=== PATIENT | male | born 1985 | race Caucasian/White ===

== ENCOUNTER 2016-10-24 14:35 | Emergency (ER) | payer OTHER ==
[2016-10-24 15:40] VITALS: BP 148/103
--- NOTE | 2016-10-24 16:18 | UC ---
Upper Extremity HPI - HPI Summary HPI Summary: patient was sledding fell and landed on right arm it was pulled backward, hit back of head on arm. pain along the right side of neck. states he felt his arm was numb this morning but not anymore. took ibuprofen around 11. states that NSAIDS hurt his stomach. - History of Current Complaint Chief Complaint: UCTrauma Stated Complaint: HEADACHE Time Seen by Provider: 10/24/16 15:45 Hx Obtained From: Patient ?: No Onset/Duration: Sudden Onset, Lasting Days Severity Initially: Moderate Severity Currently: Moderate Pain Intensity: 7 Pain Scale Used: 0-10 Numeric Location Of Pain: Is Discrete @ - right side of occiput and trapezius Character: Dull, Aching Aggravating Factor(s): Flexion Alleviating Factor(s): Nothing Associated Signs And Symptoms: Positive: Negative - Risk Factors Non-Orthopedic Risk Factor: Negative DVT Risk Factors: Negative Septic Arthritis Risk Factor: Negative - Allergies/Home Medications Allergies/Adverse Reactions: Allergies Allergy/AdvReac Type Severity Reaction Status Date / Time NSAIDs AdvReac Severe GI Upset Verified 10/24/16 15:41 Home Medications: Home Medications Ibuprofen TAB* [Advil TAB*] 600 mg PO PRN 10/24/16 [History] PMH/Surg Hx/FS Hx/Imm Hx Previously Healthy: Yes - Surgical History Surgical History: None Surgery Procedure, Year, and Place: no SX to rt upper extremity - Family History Known Family History: Positive: Hypertension Negative: Cardiac Disease, Diabetes, Renal Disease - Social History Alcohol Use: None Substance Use Type: None Smoking Status (MU): Never Smoked Tobacco Type: Smokeless Tobacco Amount Used/How Often: 1/2 can daily Length of Time of Smoking/Using Tobacco: trying to quit - Immunization History Most Recent Influenza Vaccination: none Review of Systems Constitutional: Negative Skin: Negative Eyes: Negative ENT: Negative Respiratory: Negative Cardiovascular: Negative Gastrointestinal: Negative Genitourinary: Negative Motor: Negative Neurovascular: Negative Musculoskeletal: Myalgia Neurological: Headache Psychological: Negative All Other Systems Reviewed And Are Negative: Yes Physical Exam Triage Information Reviewed: Yes Appearance: Well-Appearing, Well-Nourished, Pain Distress Vital Signs: Initial Vital Signs Temp 98.1 F 10/24/16 15:35 Pulse 108 10/24/16 15:35 Resp 16 10/24/16 15:35 BP 148/103 10/24/16 15:35 Pulse Ox 100 10/24/16 15:35 Vital Signs Reviewed: Yes Eye Exam: Normal Eyes: Positive: Conjunctiva Clear ENT Exam: Normal ENT: Positive: Normal ENT inspection, Pharynx normal, TMs normal Dental Exam: Normal Neck exam: Normal Neck: Positive: Supple, Nontender, No Lymphadenopathy, Tenderness @ - over right side upper trapezius Respiratory Exam: Normal Respiratory: Positive: Chest non-tender, Lungs clear, Normal breath sounds Cardiovascular Exam: Normal Cardiovascular: Positive: RRR, No Murmur, Pulses Normal Abdominal Exam: Normal Abdomen Description: Positive: Nontender, No Organomegaly, Soft Bowel Sounds: Positive: Present Musculoskeletal: Positive: Strength Intact, ROM Intact - painful in extension but able to move through full ROM, no probelms with ext and lateral flexion and rotation Neurological Exam: Normal - NEG rhomberg, cranial nerves intact, PERRLA Neurological: Positive: Alert, Muscle Tone Normal Psychological Exam: Normal Psychological: Positive: Normal Response To Family Skin Exam: Normal Upper Extremity Course/Dx - Course Course Of Treatment: hx obtained, exam performed, Neuro exam negative. cannot reproduce the numbness and tingling in arm, shoulder ext rot and abd do not illicit any nerve pain or numbenss. patient refusing toradol and muscle relaxors as they have not helped him in the past. state the only thing that works for him is hydrocodone. 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 advised patiant to use ibuprofen and heat for muscle pain and gave 3 tabs of NORCO for bedtime x 3 days. - Differential Dx/Diagnosis Differential Diagnosis/HQI/PQRI: Bursitis, Contusion, Laceration, Strain, Sprain Provider Diagnoses: muscle strain of right upper trap. headache Discharge - Discharge Plan Condition: Stable Disposition: HOME Prescriptions: HYDROcodone/ACETAMIN 5-325 MG* [[place] 5-325 TAB*] 1 tab PO BEDTIME PRN #3 tab MDD 5 mg PRN Reason: Pain
== END 2016-10-24 16:56 | disposition home or self-care (01) ==
LOC: UCEAST 14:35
DX: S46.811A Strain of other muscles, fascia and tendons at shoulder and upper arm level, right arm, initial encounter (principal); W19.XXXA Unspecified fall, initial encounter; Y93.23 Activity, snow (alpine) (downhill) skiing, snowboarding, sledding, tobogganing and snow tubing; Y92.9 Unspecified place or not applicable; R51 Headache; Z88.6 Allergy status to analgesic agent; F17.220 Nicotine dependence, chewing tobacco, uncomplicated
CPT/HCPCS: 99212; G0463

== ENCOUNTER 2016-11-09 09:13 | Emergency (ER) | payer OTHER ==
[2016-11-09 09:24] VITALS: BP 155/94
--- NOTE | 2016-11-09 09:31 | UC ---
Neck Pain HPI - HPI Summary HPI Summary: complaint of neck pain and left shoulder that started 11/03/16 went to PCP-Esdras MATSON and was given flexeril and ibuprofen but it isn't helping the pain pain starts in his neck and radiates into the back of his arm and into his hand pain is constant increases with movement up and down and turning to the left increase the pain nothing lessens the pain denies trauma but has a physical job with lifting involved had massage therapy without much relief flexeril helps him sleep but doesn't help with pain ibuprofen 3-4x day without relief - History of Current Complaint Stated Complaint: LT SHOULDER/NECK COMPLAINT Hx Obtained From: Patient - Allergies/Home Medications Allergies/Adverse Reactions: Allergies Allergy/AdvReac Type Severity Reaction Status Date / Time NSAIDs AdvReac Severe GI Upset Verified 11/09/16 09:24 Home Medications: Home Medications Cyclobenzaprine TAB* [Flexeril TAB*] 10 mg PO BID PRN 11/09/16 [History Confirmed 11/09/16] PMH/Surg Hx/FS Hx/Imm Hx Previously Healthy: Yes - Surgical History Surgical History: None Surgery Procedure, Year, and Place: no SX to rt upper extremity - Family History Known Family History: Positive: Hypertension Negative: Cardiac Disease, Diabetes, Renal Disease - Social History Occupation: Employed Full-time Lives: With Family Alcohol Use: None Substance Use Type: None Smoking Status (MU): Never Smoked Tobacco Type: Smokeless Tobacco Amount Used/How Often: 1/2 can daily Length of Time of Smoking/Using Tobacco: trying to quit - Immunization History Most Recent Influenza Vaccination: none Review Of Systems Constitutional: Positive: Negative Skin: Positive: Negative Eyes: Positive: Negative ENT: Positive: Negative Respiratory: Positive: Negative Cardiovascular: Positive: Negative Gastrointestinal: Positive: Negative Genitourinary: Positive: Negative Musculoskeletal: Positive: Other: - neck pain Neurological: Positive: Negative Psychological: Positive: Negative All Other Systems Reviewed And Are Negative: Yes Physical Exam Triage Information Reviewed: Yes Appearance: No Pain Distress, Well-Nourished Vital Signs: Initial Vital Signs Temp 97.8 F 11/09/16 09:19 Pulse 88 11/09/16 09:19 Resp 16 11/09/16 09:19 BP 155/94 11/09/16 09:19 Pulse Ox 98 11/09/16 09:19 Vital Signs Reviewed: Yes Eyes: Positive: Conjunctiva Clear ENT: Positive: Normal ENT inspection Neck: Positive: Supple, No Lymphadenopathy, Other: - no cspine tenderness point tenderness throughout left side of trapezius full ROM Respiratory: Positive: Lungs clear, Normal breath sounds, No respiratory distress Abdomen Description: Positive: Nontender, Soft Bowel Sounds: Positive: Present Musculoskeletal: Positive: Other: - tenderness in musculature between left scapula and spine equal strength in both arms Neurological: Positive: Alert Skin Exam: Normal Neck Pain Course/Dx - Course Course Of Treatment: exam competed. musculoskelatal pain d/t strain. will change muscle relaxer and NSAIDS- pt already taking NSADIS not a true allergy. will refer to PT for further evaluation and treatment. - Differential Dx/Diagnosis Differential Dx/HQI/PQRI: Sprain, Strain, Torticollis Provider Diagnoses: neck pain with radiculopathy, elevated blood pressure Discharge - Discharge Plan Condition: Stable Disposition: HOME Prescriptions: Metaxalone TAB* [Skelaxin TAB*] 800 mg PO TID #30 tab Naproxen TAB* [Naprosyn TAB*] 500 mg PO Q12H PRN #20 tab PRN Reason: Pain - Mild Patient Education Materials: Acute Neck Pain (ED), Hypertension (ED) Referrals: Umair Arriaga [Primary Care Provider] - Additional Instructions: . Stop flexeril as directed.Start skelaxin as directed Do not drink, drive or operate heavy machinery while on skelaxin. Take naproxen for pain. Please call physical therapist for further evaluation and treatment of your lower back pain. Increase fluids and rest. Please review your discharge instructions. Your blood pressure is elevated please followup with primary care provider for evaluation of your blood pressure. If your symptoms do not improve please call your primary care provider or return to urgent care.
== END 2016-11-09 09:59 | disposition home or self-care (01) ==
LOC: UCEAST 09:13
DX: M54.12 Radiculopathy, cervical region (principal); I10 Essential (primary) hypertension; F17.220 Nicotine dependence, chewing tobacco, uncomplicated; Z88.6 Allergy status to analgesic agent
CPT/HCPCS: 99212; G0463

== ENCOUNTER 2016-11-12 11:52 | Emergency (ER) | payer OTHER ==
[2016-11-12 12:20] VITALS: BP 146/103
--- NOTE | 2016-11-12 13:16 | UC ---
Shoulder Pain HPI - HPI Summary HPI Summary: LEFT SCAPULAR PAIN SINCE 11/03/15. SEEN BY PRIMARY CARE BLAYNE, GIVEN BACLOFEN, PREDNISONE, PHYSICAL THERAPY REFERRAL. PATIENT DEMANDED SCHEDULED MEDICATION. ( 5 DIFFERENT PROVIDERS ON [facility] WITHIN LAST 90 DAYS). I DISCUSSED THAT I WAS WILLING TO GET XRAYS AND ATTEMPT ALTERNATIVE PAIN MANGEMENT AND ALTERNATIVE NONSCHEDULED MUSCLE RELAXERS THERAPY, PATIENT REFUSED XRAYS AND LIDO PATCHES OTHER REFERRALS OR ALTERNATIVE NONSCHEDULED THERAPY AND LEFT ROOM AMA. STATING THAT HE WOULD CALL PRIMARY CARE AND PHYSICAL THERAPIST NEXT WEEK. - History of Current Complaint Chief Complaint: UCUpperExtremity Stated Complaint: NECK AND SHOULDER PAIN Time Seen by Provider: 11/12/16 12:51 Hx Obtained From: Patient Onset/Duration: Gradual Onset, Lasting Weeks, Still Present Severity Initially: Moderate Severity Currently: Moderate Location Of Pain: Is Discrete @ - LEFT SHOULDER AND SCAPULA Character: Spasmodic Aggravating Factor(s): Lifting Alleviating Factor(s): Rest Associated Signs And Symptoms: Positive: Numbness/Tingling - LEFT ARM Related History: Dominant Hand Right - Risk Factors Non-Orthopedic Risk Factor: Negative DVT Risk Factors: Negative Septic Arthritis Risk Factor: Negative - Allergies/Home Medications Allergies/Adverse Reactions: Allergies Allergy/AdvReac Type Severity Reaction Status Date / Time NSAIDs AdvReac Severe GI Upset Verified 11/09/16 09:24 Home Medications: Home Medications Baclofen TAB* [Lioresal TAB*] 10 mg PO TID PRN 11/12/16 [History Confirmed 11/12] Prednisone 11/12/16 [History] PMH/Surg Hx/FS Hx/Imm Hx Previously Healthy: Yes - Surgical History Surgical History: None Surgery Procedure, Year, and Place: no SX to rt upper extremity - Family History Known Family History: Positive: Hypertension Negative: Cardiac Disease, Diabetes, Renal Disease - Social History Lives: With Family Alcohol Use: None Substance Use Type: None Smoking Status (MU): Never Smoked Tobacco Type: Smokeless Tobacco Amount Used/How Often: 1 can daily Length of Time of Smoking/Using Tobacco: 3-4 years Have You Smoked in the Last Year: No Cessation Counseling: Patient Advised to Stop - Immunization History Most Recent Influenza Vaccination: none Review of Systems Constitutional: Negative Skin: Negative Eyes: Negative ENT: Negative Respiratory: Negative Cardiovascular: Negative Gastrointestinal: Negative Genitourinary: Negative Motor: Negative Neurovascular: Negative Musculoskeletal: Arthralgia, Myalgia Neurological: Paresthesia Psychological: Negative All Other Systems Reviewed And Are Negative: Yes Physical Exam Triage Information Reviewed: Yes Appearance: Well-Appearing, Well-Nourished, Pain Distress - MILD Vital Signs: Initial Vital Signs Temp 99.2 F 11/12/16 12:13 Pulse 86 11/12/16 12:13 Resp 16 11/12/16 12:13 BP 146/103 11/12/16 12:13 Pulse Ox 98 11/12/16 12:13 Vital Signs Reviewed: Yes Eye Exam: Normal ENT Exam: Normal ENT: Positive: Normal ENT inspection, Hearing grossly normal, Pharynx normal, TMs normal Dental Exam: Normal Neck: Positive: Supple, Nontender, Tenderness @ - LEFT SCAPULAR MARGIN AND LEFT SUPERIOR PARSPINAL MUSCLES Respiratory Exam: Normal Respiratory: Positive: Chest non-tender, Lungs clear, Normal breath sounds, No respiratory distress, No accessory muscle use Cardiovascular Exam: Normal Cardiovascular: Positive: RRR, No Murmur Abdominal Exam: Normal Musculoskeletal Exam: Normal Musculoskeletal: Positive: Strength Intact, ROM Intact, No Edema Neurological Exam: Normal Psychological Exam: Normal Skin Exam: Normal Shoulder Course/Dx - Differential Dx/Diagnosis Differential Diagnosis/HQI/PQRI: AC Separation, Sprain, Strain Provider Diagnoses: SHOULDER PAIN Discharge - Discharge Plan Condition: Stable Disposition: AGAINST MEDICAL ADVICE Referrals: Umair Arriaga [Primary Care Provider] -
== END 2016-11-12 13:28 | disposition left against medical advice (07) ==
LOC: UCEAST 11:52
DX: M25.512 Pain in left shoulder (principal); R20.0 Anesthesia of skin; Z88.6 Allergy status to analgesic agent; F17.220 Nicotine dependence, chewing tobacco, uncomplicated
CPT/HCPCS: 99212; G0463

== ENCOUNTER 2017-01-30 12:39 | Emergency (ER) | payer SELFPAY ==
[2017-01-30 13:15] VITALS: BP 144/71
--- NOTE | 2017-01-30 13:42 | UC ---
Back Pain HPI - HPI Summary HPI Summary: 2 evenings ago developed pain between his shoulder blades after a day of heavy yardwork. No hx of trauma or sx. Had similar pain from muscular strain 10 years ago that resolved on its own. Had to call into work today due to pain. - History of Current Complaint Chief Complaint: UCBackPain Stated Complaint: BACK PAIN-TWEEKED Time Seen by Provider: 01/30/17 13:16 Hx Obtained From: Patient Onset/Duration: Gradual Onset, Lasting Days Timing: Constant Severity Initially: Moderate Severity Currently: Moderate Back Pain: Is Discrete @ Character: Sharp, Spasmodic, Stiffness Aggravating: Movement, Bending Alleviating: Rest Associated Signs And Symptoms: Negative: Swelling, Fever, Weakness, Numbness, Tingling, Bladder Incontinence, Bowel Incontinence, Weight Loss - Allergies/Home Medications Allergies/Adverse Reactions: Allergies Allergy/AdvReac Type Severity Reaction Status Date / Time NSAIDs AdvReac Severe GI Upset Verified 11/09/16 09:24 Home Medications: Home Medications Gemfibrozil TAB* [Lopid TAB*] 600 mg PO BID 01/30/17 [History Confirmed ] Lisinopril [Prinivil TAB 20 mg] 20 mg PO DAILY 01/30/17 [History Confirmed 01/30] PMH/Surg Hx/FS Hx/Imm Hx Cardiovascular History Of: Reports: Hypertension - Surgical History Surgical History: None Surgery Procedure, Year, and Place: no SX to rt upper extremity - Family History Known Family History: Positive: Hypertension Negative: Cardiac Disease, Diabetes, Renal Disease - Social History Occupation: Employed Full-time Alcohol Use: None Substance Use Type: None Smoking Status (MU): Never Smoked Tobacco Type: Smokeless Tobacco Amount Used/How Often: 1 can daily Length of Time of Smoking/Using Tobacco: 3-4 years Have You Smoked in the Last Year: No Cessation Counseling: Patient Advised to Stop - Immunization History Most Recent Influenza Vaccination: none Review of Systems Constitutional: Negative Skin: Negative Eyes: Negative ENT: Negative Respiratory: Negative Cardiovascular: Negative Gastrointestinal: Negative Genitourinary: Negative Motor: Negative Neurovascular: Negative Musculoskeletal: Myalgia - upper back Neurological: Negative Psychological: Negative All Other Systems Reviewed And Are Negative: Yes Physical Exam Triage Information Reviewed: Yes Appearance: Well-Appearing, No Pain Distress, Well-Nourished Vital Signs: Initial Vital Signs Temp 97.7 F 01/30/17 13:10 Pulse 81 01/30/17 13:10 Resp 18 01/30/17 13:10 BP 144/71 01/30/17 13:10 Pulse Ox 100 01/30/17 13:10 Vital Signs Reviewed: Yes Eye Exam: Normal Eyes: Positive: Conjunctiva Clear ENT Exam: Normal ENT: Positive: Normal ENT inspection, Hearing grossly normal, Pharynx normal, TMs normal Dental Exam: Normal Neck exam: Normal Neck: Positive: Supple, Nontender, No Lymphadenopathy Respiratory Exam: Normal Respiratory: Positive: Chest non-tender, Lungs clear, Normal breath sounds, No respiratory distress, No accessory muscle use Cardiovascular Exam: Normal Cardiovascular: Positive: RRR, No Murmur Musculoskeletal Exam: Other - no bony tenderness, sore over upper back muscles Musculoskeletal: Positive: Strength Intact, ROM Intact Neurological Exam: Normal Neurological: Positive: Alert Psychological Exam: Normal Skin Exam: Normal Back Pain Course/Dx - Differential Dx/Diagnosis Provider Diagnoses: Upper back strain Discharge - Discharge Plan Condition: Stable Disposition: HOME Prescriptions: Cyclobenzaprine TAB* [Flexeril 10 MG TAB*] 10 mg PO BID PRN #14 tab PRN Reason: Pain Meloxicam 7.5 mg PO DAILY #10 tab Patient Education Materials: Thoracic Back Strain (ED) Forms: *Work Release Referrals: Beverley DUFFY,Umair Cooper [Primary Care Provider] - Additional Instructions: Apply warm moist heat and do gentle passive stretches like I showed you. I expect you to see clear improvement within 2-3 days. If not, please see your primary care provider.
== END 2017-01-30 13:44 | disposition home or self-care (01) ==
LOC: UCEAST 12:39
DX: S29.012A Strain of muscle and tendon of back wall of thorax, initial encounter (principal); X58.XXXA Exposure to other specified factors, initial encounter; Y93.9 Activity, unspecified; Y99.9 Unspecified external cause status; I10 Essential (primary) hypertension; F17.290 Nicotine dependence, other tobacco product, uncomplicated; Z88.6 Allergy status to analgesic agent
CPT/HCPCS: 99212; G0463

== ENCOUNTER 2017-02-05 18:41 | Emergency (ER) | payer SELFPAY ==
[2017-02-05 19:32] VITALS: BP 131/84
--- NOTE | 2017-02-05 19:58 | UC ---
Knee Pain HPI - HPI Summary HPI Summary: The patient comes in today for: 1. Knee pain re-assessment: Onset: 8-9 days ago. Palliative/provocative: Walking and bending his back does makes his conditions worse, but he thinks that these are manageable. Quality: Ache, and sharp Region: Upper to mid back and right knee. Severity: 2/10 Time: Constant. Associated symptoms: Event: He twisted it playing softball about 9 days ago. He also had a low back pain from about 8 days ago. He got meloxicam and Flexeril which he did not use except for Flexeril at night. HE states that he is ready to go back to work. Numbness/weakness: None. No problems with bowel and bladder control. * - History of Current Complaint Chief Complaint: UCGeneralIllness Stated Complaint: WORK NOTE Time Seen by Provider: 02/05/17 19:47 Hx Obtained From: Patient - Allergies/Home Medications Allergies/Adverse Reactions: Allergies Allergy/AdvReac Type Severity Reaction Status Date / Time NSAIDs AdvReac Severe GI Upset Verified 11/09/16 09:24 PMH/Surg Hx/FS Hx/Imm Hx Previously Healthy: No Endocrine History Of: Reports: Dyslipidemia Denies: Diabetes, Thyroid Disease, Hyperthyroidism, Hypothyroidism Cardiovascular History Of: Reports: Hypertension Denies: Cardiac Disorders, Pacemaker/ICD, Myocardial Infarction, Congestive Heart Failure, Atrial Fibrillation, Deep Vein Thrombosis, Bleeding Disorders Respiratory History Of: Denies: COPD, Asthma, Bronchitis, Pneumonia, Pulmonary Embolism GI/ History Of: Denies: Gastroesophageal Reflux, Ulcer, Gastrointestinal Bleed, Gall Bladder Disease, Kidney Stones, Diverticulitis, Renal Disease, Urosepsis Neurological History Of: Denies: TIA, CVA, Dementia, Seizures, Migraine Psychological History Of: Denies: Anxiety, Depression, Bipolar Disorder, Schizophrenia, Post Traumatic Stress Disorder Cancer History Of: Denies: Lung Cancer, Colorectal Cancer, Breast Cancer, Prostate Cancer, Cervical Cancer Other History Of: Negative For: HIV, Hepatitis B, Hepatitis C, Anticoagulant Therapy - Surgical History Surgical History: None Surgery Procedure, Year, and Place: no SX to rt upper extremity - Family History Known Family History: Positive: Hypertension Negative: Cardiac Disease, Diabetes, Renal Disease - Social History Alcohol Use: None Substance Use Type: None Smoking Status (MU): Never Smoked Tobacco Type: Smokeless Tobacco Amount Used/How Often: 1 can daily Length of Time of Smoking/Using Tobacco: 3-4 years Have You Smoked in the Last Year: No - Immunization History Most Recent Influenza Vaccination: none Review of Systems Constitutional: Negative Skin: Negative Eyes: Negative ENT: Negative Respiratory: Negative Cardiovascular: Negative Gastrointestinal: Negative Genitourinary: Negative Musculoskeletal: Arthralgia All Other Systems Reviewed And Are Negative: Yes Physical Exam Triage Information Reviewed: Yes Appearance: Well-Appearing, No Pain Distress - He has no psychomotor slowing or guarding. He moves on and off the exam table with no problems., Well-Nourished Vital Signs: Initial Vital Signs Temp 98.6 F 02/05/17 19:27 Pulse 100 02/05/17 19:27 Resp 18 02/05/17 19:27 BP 131/84 02/05/17 19:27 Pulse Ox 100 02/05/17 19:27 Vital Signs Reviewed: Yes Eyes: Positive: Conjunctiva Clear. Negative: Discharge ENT: Positive: Hearing grossly normal. Negative: Pharyngeal erythema, Nasal congestion, Nasal drainage, TM bulging, TM dull, TM red, Tonsillar swelling, Tonsillar exudate Dental: Negative: Gross Decay/Caries @, Dental Fracture @ Neck: Positive: Supple, Nontender, No Lymphadenopathy. Negative: Nuchal Rigidity Respiratory: Positive: Lungs clear, No respiratory distress, No accessory muscle use. Negative: Crackles, Wheezing Cardiovascular: Positive: RRR, No Murmur Abdomen Description: Positive: Nontender, No Organomegaly. Negative: Distended , Guarding Musculoskeletal: Positive: Strength Intact, ROM Intact, No Edema, Other: - Back : He has good range of motion, no SLR and no minimal tenderness to palpatino of the rhomboids or the thoracic paraspinous musculature. Knee: NO effusion, or tenderness to palpation anywhere around the knee. He has full range of motion and there is no laxity of the cruciate or collateral ligaments. Neurological: Positive: Alert, Muscle Tone Normal Psychological: Positive: Age Appropriate Behavior, Consolable Skin: Negative: rashes, breakdown Knee Pain Course/Dx - Differential Dx/Diagnosis Provider Diagnoses: Upper back strain. Right knee pain. Discharge - Discharge Plan Condition: Stable Disposition: HOME Patient Education Materials: Thoracic Back Strain (ED), Knee Pain (ED) Forms: *Work Release Referrals: Umair Arriaga [Primary Care Provider] - 1 Week (Please see your primary care provider in a week to see how well you are doing. If you get worse, please be seen sooner in the ER or through us.)
== END 2017-02-05 20:19 | disposition home or self-care (01) ==
LOC: UCEAST 18:41
DX: S29.012A Strain of muscle and tendon of back wall of thorax, initial encounter (principal); M25.561 Pain in right knee; Y93.64 Activity, baseball; E78.5 Hyperlipidemia, unspecified; I10 Essential (primary) hypertension; Z88.6 Allergy status to analgesic agent
CPT/HCPCS: 99212; G0463

== ENCOUNTER 2017-02-13 17:23 | Emergency (ER) | payer SELFPAY ==
[2017-02-13 18:40] VITALS: BP 118/67
--- NOTE | 2017-02-13 19:08 | UC ---
Knee Pain HPI - HPI Summary HPI Summary: The patient comes in today for: 1. Right knee pain and back pain: Onset: Knee pain 2 weeks, back pain, 1-2 weeks. Palliative/provocative: Laying still helps. Quality: Back: Ache. Knee: sharp when walking--stiff when sitting. Region: Lower back and knee. Severity: 1/10 for the back. Knee 5/10 Time: Constant. Associated symptoms: Event: He was playing softball and ended up suffering right knee pain and back pain. From the worse, the back pain is 80% improved. The knee pain is about the same as before. Still stiff and still has sharp pain from time to time. Previous treatment: Ultram gave him "acid reflux" and "headaches." He states that he needs to go back to work. Previous treatment: NSAIDS upsets his stomach and Ultram/tramadol causes acid reflux. He denies any giving away or catching of his right knee movement. * - History of Current Complaint Chief Complaint: UCLowerExtremity Stated Complaint: RIGHT KNEE PAIN Time Seen by Provider: 02/13/17 18:54 Hx Obtained From: Patient - Allergies/Home Medications Allergies/Adverse Reactions: Allergies Allergy/AdvReac Type Severity Reaction Status Date / Time Acetaminophen [From Ultracet] Allergy GI Upset Verified 02/13/17 18:44 Tramadol [From Ultracet] Allergy GI Upset Verified 02/13/17 18:44 NSAIDs AdvReac Severe GI Upset Verified 02/13/17 18:40 Home Medications: Home Medications Ibuprofen TAB* [Advil TAB*] 600 mg PO Q6H PRN 02/13/17 [History Confirmed ] PMH/Surg Hx/FS Hx/Imm Hx Previously Healthy: No Endocrine History Of: Reports: Dyslipidemia Denies: Diabetes, Thyroid Disease, Hyperthyroidism, Hypothyroidism Cardiovascular History Of: Reports: Hypertension Denies: Cardiac Disorders, Pacemaker/ICD, Myocardial Infarction, Congestive Heart Failure, Atrial Fibrillation, Deep Vein Thrombosis, Bleeding Disorders Respiratory History Of: Denies: COPD, Asthma, Bronchitis, Pneumonia, Pulmonary Embolism GI/ History Of: Denies: Gastroesophageal Reflux, Ulcer, Gastrointestinal Bleed, Gall Bladder Disease, Kidney Stones, Diverticulitis, Renal Disease, Urosepsis Neurological History Of: Denies: TIA, CVA, Dementia, Seizures, Migraine Psychological History Of: Denies: Anxiety, Depression, Bipolar Disorder, Schizophrenia, Post Traumatic Stress Disorder Cancer History Of: Denies: Lung Cancer, Colorectal Cancer, Breast Cancer, Prostate Cancer, Cervical Cancer Other History Of: Negative For: HIV, Hepatitis B, Hepatitis C, Anticoagulant Therapy - Surgical History Surgical History: None Surgery Procedure, Year, and Place: no SX to rt upper extremity - Family History Known Family History: Positive: Hypertension Negative: Cardiac Disease, Diabetes, Renal Disease - Social History Occupation: Employed Full-time Alcohol Use: None Substance Use Type: None Smoking Status (MU): Never Smoked Tobacco Type: Smokeless Tobacco Amount Used/How Often: 1 can daily Length of Time of Smoking/Using Tobacco: 3-4 years Have You Smoked in the Last Year: No - Immunization History Most Recent Influenza Vaccination: none Review of Systems Constitutional: Negative Skin: Negative Eyes: Negative ENT: Negative Respiratory: Negative Cardiovascular: Negative Gastrointestinal: Negative Genitourinary: Negative Musculoskeletal: Arthralgia All Other Systems Reviewed And Are Negative: Yes Physical Exam Triage Information Reviewed: Yes Appearance: Well-Appearing, No Pain Distress, Well-Nourished Vital Signs: Initial Vital Signs Temp 98.8 F 02/13/17 18:35 Pulse 99 02/13/17 18:35 Resp 20 02/13/17 18:35 BP 118/67 02/13/17 18:35 Pulse Ox 100 02/13/17 18:35 Vital Signs Reviewed: Yes Eyes: Positive: Conjunctiva Clear. Negative: Discharge ENT: Positive: Hearing grossly normal. Negative: Pharyngeal erythema, Nasal congestion, Nasal drainage, TM bulging, TM dull, TM red, Tonsillar swelling, Tonsillar exudate Dental: Negative: Gross Decay/Caries @, Dental Fracture @ Neck: Positive: Supple, Nontender, No Lymphadenopathy. Negative: Nuchal Rigidity Respiratory: Positive: Lungs clear, No respiratory distress, No accessory muscle use. Negative: Crackles, Wheezing Cardiovascular: Positive: RRR, No Murmur Abdomen Description: Positive: Nontender, No Organomegaly, Soft. Negative: Distended, Guarding Musculoskeletal: Positive: Strength Intact, ROM Intact, No Edema, Other: - Back : He has no psychomotor slowing or guarding. He has no tenderness to palpation of the paraspinous musculture of the lower thoracic area where he states that the pain is present. He has no SLR. Right knee: no swelling, effusion, or tenderness to palpation of the posterior knee, or the hamstring tendons or laxity of the collateral ligaments or the cruciate ligaments. There is no tenderness to palpation of the anterior meniscii. Neurological: Positive: Alert, Muscle Tone Normal Psychological: Positive: Age Appropriate Behavior, Consolable Skin: Negative: rashes, breakdown Knee Pain Course/Dx - Differential Dx/Diagnosis Provider Diagnoses: chronic back pain. Right knee pain. Discharge - Discharge Plan Condition: Stable Disposition: HOME Patient Education Materials: Chronic Back Pain (ED), Knee Pain (ED) Forms: *Work Release Referrals: MIRANDA Bull [Primary Care Provider] - 1 Week (Please see your primary care provider for narcotic pain control)
== END 2017-02-13 19:33 | disposition home or self-care (01) ==
LOC: UCCORT 17:23
DX: M25.561 Pain in right knee (principal); M54.9 Dorsalgia, unspecified; G89.29 Other chronic pain; Z88.6 Allergy status to analgesic agent; Z88.5 Allergy status to narcotic agent; E78.5 Hyperlipidemia, unspecified; I10 Essential (primary) hypertension; F17.220 Nicotine dependence, chewing tobacco, uncomplicated
CPT/HCPCS: 99212; G0463

== ENCOUNTER 2017-02-13 17:48 | Emergency (ER) | payer SELFPAY | END 2017-02-13 23:10 | disposition left against medical advice (07) | LOC: UCEAST 17:48 | DX: M25.569 Pain in unspecified knee (principal); Z53.21 Procedure and treatment not carried out due to patient leaving prior to being seen by health care provider ==

== ENCOUNTER 2017-02-26 15:15 | Emergency (ER) | payer SELFPAY ==
[2017-02-26 15:40] VITALS: BP 119/64
--- NOTE | 2017-02-26 16:21 | UC ---
Dental HPI - HPI Summary HPI Summary: Patient arrives to with CC of pain over left upper tooth radiating to the jaw and ear which began this morning. Denies trismus, drooling or dysphagia. Pain is 3/10, sharp and throbbing. Denies airway compromise or SOB. Denies ear pain, eye pain, blurry vision or double vision. Otherwise healthy. Pain is worse with chewing and cold drinks, better with ibuprofen, but only improves slightly. Patient denies dental care for several years. Denies smoking history , but endorses chewing tobacco. Patient has been seen her twice recently for knee pain and has been prescribed norco. He has tried ibuprofen this morning with little relief. - History of Current Complaint Chief Complaint: UCDentalProblem Stated Complaint: TOOTH ACHE Time Seen by Provider: 02/26/17 15:49 Hx Obtained From: Patient Onset/Duration: Sudden Onset Severity: Moderate Pain Intensity: 2 Pain Scale Used: 0-10 Numeric Aggravating: Cold, Chewing - Allergies/Home Medications Allergies/Adverse Reactions: Allergies Allergy/AdvReac Type Severity Reaction Status Date / Time Tramadol [From Ultracet] Allergy GI Upset Verified 02/26/17 15:41 NSAIDs AdvReac Severe GI Upset Verified 02/26/17 15:41 PMH/Surg Hx/FS Hx/Imm Hx Previously Healthy: Yes - takes medications for HTN and high cholesterol Endocrine History Of: Reports: Dyslipidemia Denies: Diabetes, Thyroid Disease, Hyperthyroidism, Hypothyroidism Cardiovascular History Of: Reports: Hypertension Denies: Cardiac Disorders, Pacemaker/ICD, Myocardial Infarction, Congestive Heart Failure, Atrial Fibrillation, Deep Vein Thrombosis, Bleeding Disorders Respiratory History Of: Denies: COPD, Asthma, Bronchitis, Pneumonia, Pulmonary Embolism GI/ History Of: Denies: Gastroesophageal Reflux, Ulcer, Gastrointestinal Bleed, Gall Bladder Disease, Kidney Stones, Diverticulitis, Renal Disease, Urosepsis Neurological History Of: Denies: TIA, CVA, Dementia, Seizures, Migraine Psychological History Of: Denies: Anxiety, Depression, Bipolar Disorder, Schizophrenia, Post Traumatic Stress Disorder Cancer History Of: Denies: Lung Cancer, Colorectal Cancer, Breast Cancer, Prostate Cancer, Cervical Cancer Other History Of: Negative For: HIV, Hepatitis B, Hepatitis C, Anticoagulant Therapy - Surgical History Surgical History: None Surgery Procedure, Year, and Place: no SX to rt upper extremity - Family History Known Family History: Positive: Hypertension Negative: Cardiac Disease, Diabetes, Renal Disease - Social History Occupation: Employed Full-time Lives: With Family Alcohol Use: None Substance Use Type: None Smoking Status (MU): Never Smoked Tobacco Type: Smokeless Tobacco Amount Used/How Often: 1 can daily Length of Time of Smoking/Using Tobacco: 3-4 years Have You Smoked in the Last Year: No - Immunization History Most Recent Influenza Vaccination: none Review of Systems Constitutional: Negative Skin: Negative Eyes: Negative ENT: Dental Pain Respiratory: Negative Cardiovascular: Negative Gastrointestinal: Negative Neurovascular: Negative Neurological: Negative All Other Systems Reviewed And Are Negative: Yes Physical Exam Triage Information Reviewed: Yes Appearance: Well-Appearing, No Pain Distress, Well-Nourished Vital Signs: Initial Vital Signs Temp 97.7 F 02/26/17 15:34 Pulse 92 02/26/17 15:34 Resp 18 02/26/17 15:34 BP 119/64 02/26/17 15:34 Pulse Ox 100 02/26/17 15:34 Vital Signs Reviewed: Yes Eye Exam: Normal Eyes: Positive: Conjunctiva Clear ENT Exam: Normal ENT: Positive: Pharynx normal Dental: Positive: Percussion Tenderness @, Gross Decay/Caries @, Dental Fracture @, Other: - Several dental caries, cavities, crowding and broken teeth throughout. Pain on palpation over mandible. No TMJ tenderness. No pain with opening and closing mouth. Poor dental hygiene and outpatient dental care. No erythema at site of pain. Neck: Positive: Supple, No Lymphadenopathy Respiratory Exam: Normal Respiratory: Positive: Chest non-tender, Lungs clear Cardiovascular Exam: Normal Cardiovascular: Positive: RRR Neurological Exam: Normal Neurological: Positive: Alert Psychological Exam: Normal Psychological: Positive: Normal Response To Family, Age Appropriate Behavior Skin Exam: Normal Dental Complaint Course/Dx - Course Course Of Treatment: Posterior upper #13 tooth with pain. No dental abscess or lesions seen over area of concern. No erythema at site of pain. No drainage from area. Several dental caries, cavities, crowding and broken teeth throughout. No pain on palpation over mandible, but endorses pain over maxilla. No TMJ tenderness. No pain with opening and closing mouth. Poor dental hygiene and outpatient dental care. No trismus or difficulty swallowing. Will treat for possible dental infection/abscess based on symptoms of pain and radiation to jaw and ear. No allergies. Will treat with Pencillin. Patient has no allergies to abx. Patient to follow up immediately with dentist. He states he will call [facility]. He has recently received 2 - 7 days worth prescriptions of [place]. I advised I will give him 1 day worth of pain medication for breakthrough pain, but he will need to follow up with dentist for further evaluation. [place] 3 tablets given. Istop reveals multiple pain medication dispensed recently. - Differential Dx/Diagnosis Differential Diagnosis/Dx: Dental Abscess, Dental Caries, Odontogenic Pain, Other - pupitis Provider Diagnoses: dental pain Discharge - Discharge Plan Condition: Stable Disposition: HOME Prescriptions: HYDROcodone/ACETAMIN 5-325 MG* [[place] 5-325 TAB*] 1 tab PO Q8H PRN #3 tab MDD 3 PRN Reason: Pain Penicillin VK TAB 500 MG(NF) [Penicillin VK 500 mg Tab(NF)] 500 mg PO QID #28 tab Patient Education Materials: Toothache (ED) Referrals: Umair Arriaga [Primary Care Provider] - Additional Instructions: DO NOT SMOKE OR CHEW TOBACCO. You have been diagnosed with dental pain with possible infection: Antibiotics as prescribed to you. Penicillin four times daily for 7 days To minimize the potential for gastrointestinal intolerance, Penicillin should be taken at the start of a meal. If you have any questions about your medication, please contact us or ask your pharmacist. Salt water rinses several times per day will improve healing time. Ibuprofen 600mg three times daily with meals for discomfort. Follow up with a dentist for routine care to prevent recurrence of infections. If fever, worsening pain or swelling develops, see your PCP, dentist or come back to the Emergency Department. Images Dental: 1 - dental pain
== END 2017-02-26 16:08 | disposition home or self-care (01) ==
LOC: UCEAST 15:15
DX: K08.89 Other specified disorders of teeth and supporting structures (principal); I10 Essential (primary) hypertension; E78.5 Hyperlipidemia, unspecified; F17.220 Nicotine dependence, chewing tobacco, uncomplicated; Z88.6 Allergy status to analgesic agent; Z88.5 Allergy status to narcotic agent
CPT/HCPCS: 99212; G0463

== ENCOUNTER 2017-03-13 16:08 | Emergency (ER) | payer SELFPAY | END 2017-03-13 17:25 | disposition left against medical advice (07) | LOC: UCCORT 16:08 | DX: K08.89 Other specified disorders of teeth and supporting structures (principal); Z53.21 Procedure and treatment not carried out due to patient leaving prior to being seen by health care provider ==

== ENCOUNTER 2017-03-13 16:45 | Emergency (ER) | payer SELFPAY | END 2017-03-13 17:05 | disposition left against medical advice (07) | LOC: UCEAST 16:45 | DX: Z53.21 Procedure and treatment not carried out due to patient leaving prior to being seen by health care provider (principal) ==

== ENCOUNTER 2017-03-13 21:46 | Emergency (ER) | payer SELFPAY ==
[2017-03-13 22:59] VITALS: BP 111/67
--- NOTE | 2017-03-13 23:38 | UC ---
Dental HPI - HPI Summary HPI Summary: Pt here w/ Lt upper jaw dental pain. Started a couple of weeks ago and was seen 02/26 here - given norco + PCN. States that helped but pain returned today - pain radiates into ear and head -worse w/ cold exposure. Denies trauma to tooth - no fracture. Denies fever, chills, drainage from tooth, neck pain, trouble breathing or swallowing. Per pt, tried ibuprofen today w/o relief. Has not taken acetaminophen. Has been seen frequently for pain issues as seen in previous visit section of chart. Also seen are repeated issued narcotics for pain issues - ISTOP confirms. Offered pt dental block and toradol tonight for pain control - he states "I'm not looking for shots" - says nothing about toradol allergy. Pt declines either and/or bother. States he has a dental appt Thrs in [place] and that he will wait until then. Offered extra strength tylenol -he said he has some at home he will try. - History of Current Complaint Chief Complaint: UCDentalProblem Stated Complaint: TOOTH PAIN Time Seen by Provider: 03/13/17 23:14 Hx Obtained From: Patient - Allergies/Home Medications Allergies/Adverse Reactions: Allergies Allergy/AdvReac Type Severity Reaction Status Date / Time Tramadol [From Ultracet] Allergy GI Upset Verified 03/13/17 22:51 NSAIDs AdvReac Severe GI Upset Verified 03/13/17 22:51 PMH/Surg Hx/FS Hx/Imm Hx Previously Healthy: No - chronic dental pain Endocrine History Of: Reports: Dyslipidemia Denies: Diabetes, Thyroid Disease, Hyperthyroidism, Hypothyroidism Cardiovascular History Of: Reports: Hypertension Denies: Cardiac Disorders, Pacemaker/ICD, Myocardial Infarction, Congestive Heart Failure, Atrial Fibrillation, Deep Vein Thrombosis, Bleeding Disorders Respiratory History Of: Denies: COPD, Asthma, Bronchitis, Pneumonia, Pulmonary Embolism GI/ History Of: Denies: Gastroesophageal Reflux, Ulcer, Gastrointestinal Bleed, Gall Bladder Disease, Kidney Stones, Diverticulitis, Renal Disease, Urosepsis Neurological History Of: Denies: TIA, CVA, Dementia, Seizures, Migraine Psychological History Of: Denies: Anxiety, Depression, Bipolar Disorder, Schizophrenia, Post Traumatic Stress Disorder Cancer History Of: Denies: Lung Cancer, Colorectal Cancer, Breast Cancer, Prostate Cancer, Cervical Cancer Other History Of: Negative For: HIV, Hepatitis B, Hepatitis C, Anticoagulant Therapy - Surgical History Surgical History: None Surgery Procedure, Year, and Place: no SX to rt upper extremity - Family History Known Family History: Positive: Hypertension Negative: Cardiac Disease, Diabetes, Renal Disease - Social History Occupation: Employed Full-time Lives: With Family Alcohol Use: None Substance Use Type: None Smoking Status (MU): Never Smoked Tobacco Type: Smokeless Tobacco Amount Used/How Often: 1 can daily Length of Time of Smoking/Using Tobacco: 3-4 years Have You Smoked in the Last Year: No - Immunization History Most Recent Influenza Vaccination: none Review of Systems Constitutional: Negative Skin: Negative Eyes: Negative ENT: Dental Pain - see HPI Cardiovascular: Negative Gastrointestinal: Negative Motor: Negative Neurovascular: Negative Musculoskeletal: Negative Psychological: Negative All Other Systems Reviewed And Are Negative: Yes Physical Exam Triage Information Reviewed: Yes Appearance: Well-Appearing - POOR EYE CONTACT, No Pain Distress, Well-Nourished Vital Signs: Initial Vital Signs Temp 98.3 F 03/13/17 22:53 Pulse 82 03/13/17 22:53 Resp 16 03/13/17 22:53 BP 111/67 03/13/17 22:53 Pulse Ox 99 03/13/17 22:53 Eye Exam: Normal Eyes: Positive: Conjunctiva Clear ENT: Positive: Normal ENT inspection, Hearing grossly normal, Pharynx normal, TMs normal. Negative: Nasal congestion, Nasal drainage, Tonsillar swelling, Tonsillar exudate - DIFFUSE GINGIVAL HYPERTROPHY AND DECAY/PLAQUE OF TEETH - TTP over entire Lt maxilla region - no erythema, no edema, no pustule - does not flinch w/ palpation Neck exam: Normal Neck: Positive: Supple, Nontender, No Lymphadenopathy Respiratory Exam: Normal Respiratory: Positive: Normal breath sounds. Negative: Stridor Cardiovascular Exam: Normal Cardiovascular: Positive: RRR Musculoskeletal Exam: Normal Musculoskeletal: Positive: Strength Intact - FROM mandible Neurological Exam: Normal, Other - CN II-XII grossly intact Psychological: Positive: Other: - poor eye contact, polite, calm - hesitates w/ some answers Skin Exam: Normal Dental Complaint Course/Dx - Course Course Of Treatment: Pt here w/ recurring dental pain. Although he appears to have poor dentition, no signs of acute infection today and no checo dental deformity in area of pain. Offered pt dental block to reduce pain so he can sleep tonight but he declines (See HPI). Reviewed danger s/sx of when to go to ED. Pt agrees w/ plan. - Differential Dx/Diagnosis Provider Diagnoses: 1) Dental pain. 2) Malingering Discharge - Discharge Plan Condition: Stable Disposition: HOME Patient Education Materials: Toothache (ED) Referrals: No Primary Care Phys,NOPCP [Primary Care Provider] - Additional Instructions: Continue penicillin - complete course May try acetaminophen 650 mg every 6 hours for pain Caution ibuprofen if you take lisinopril - may block effectiveness of lisinopril causing blood pressure to elevate Rinse mouth with warm salt water 3-6 x day Follow-up with dentist *if you develop acute facial swelling, fever, eye pain, difficulty breathing or swallowing, go to the ED
== END 2017-03-13 23:54 | disposition home or self-care (01) ==
LOC: UCEAST 21:46
DX: K08.89 Other specified disorders of teeth and supporting structures (principal); E78.5 Hyperlipidemia, unspecified; I10 Essential (primary) hypertension; F17.290 Nicotine dependence, other tobacco product, uncomplicated; Z76.5 Malingerer [conscious simulation]; Z88.5 Allergy status to narcotic agent
CPT/HCPCS: 99211; G0463

== ENCOUNTER 2017-05-07 15:51 | Emergency (ER) | payer SELFPAY | END 2017-05-07 16:14 | disposition left against medical advice (07) | LOC: UCCORT 15:51 | DX: K31.9 Disease of stomach and duodenum, unspecified (principal); Z53.21 Procedure and treatment not carried out due to patient leaving prior to being seen by health care provider ==

== ENCOUNTER 2017-05-07 15:56 | Emergency (ER) | payer SELFPAY ==
[2017-05-07 16:34] VITALS: BP 105/66
--- NOTE | 2017-05-07 17:09 | UC ---
Knee Pain HPI - HPI Summary HPI Summary: HAD "STOMACH BUG" ON 05/03/17 AND MISSED WORK DUE TO DIARRHEA , NAUSEA. FEELING BEETER, SYMPTOMS HAVE RESOLVED. LAST TWO DAYS HAS HAD ACUTE ON CHRONIC RIGHT KNEE PAIN. NO REDNESS, NO WARMTH. NO TRAUMA. - History of Current Complaint Chief Complaint: UCLowerExtremity Stated Complaint: KNEE PAIN,WORK NOTE Time Seen by Provider: 05/07/17 16:25 Hx Obtained From: Patient Onset/Duration: Gradual Onset Severity Initially: Mild Severity Currently: Mild Character: Aching - Allergies/Home Medications Allergies/Adverse Reactions: Allergies Allergy/AdvReac Type Severity Reaction Status Date / Time Tramadol [From Ultracet] Allergy GI Upset Verified 05/07/17 16:34 NSAIDs AdvReac Severe GI Upset Verified 05/07/17 16:34 PMH/Surg Hx/FS Hx/Imm Hx Previously Healthy: Yes Other History Of: Negative For: HIV, Hepatitis B, Hepatitis C, Anticoagulant Therapy - Surgical History Surgical History: Yes Surgery Procedure, Year, and Place: no SX to rt upper extremity - Family History Known Family History: Positive: Hypertension Negative: Cardiac Disease, Diabetes, Renal Disease - Social History Occupation: Employed Full-time Lives: With Family Alcohol Use: None Substance Use Type: None Smoking Status (MU): Never Smoked Tobacco Type: Smokeless Tobacco Amount Used/How Often: 1 can daily Length of Time of Smoking/Using Tobacco: 3-4 years Have You Smoked in the Last Year: No - Immunization History Most Recent Influenza Vaccination: none Review of Systems Constitutional: Negative Skin: Negative Eyes: Negative ENT: Negative Respiratory: Negative Cardiovascular: Negative Gastrointestinal: Negative Genitourinary: Negative Motor: Negative Neurovascular: Negative Musculoskeletal: Arthralgia, Myalgia Neurological: Negative Psychological: Negative All Other Systems Reviewed And Are Negative: Yes Physical Exam Triage Information Reviewed: Yes Appearance: Well-Appearing, No Pain Distress, Well-Nourished Vital Signs: Initial Vital Signs Temp 98.1 F 05/07/17 16:32 Pulse 89 05/07/17 16:32 Resp 16 05/07/17 16:32 BP 105/66 05/07/17 16:32 Pulse Ox 100 05/07/17 16:32 Vital Signs Reviewed: Yes Eye Exam: Normal ENT Exam: Normal ENT: Positive: Normal ENT inspection Dental Exam: Normal Neck exam: Normal Neck: Positive: Supple, Nontender Respiratory Exam: Normal Respiratory: Positive: Chest non-tender, Lungs clear, Normal breath sounds, No respiratory distress Cardiovascular Exam: Normal Cardiovascular: Positive: RRR, No Murmur Abdominal Exam: Normal Abdomen Description: Positive: Nontender, No Organomegaly Musculoskeletal Exam: Normal Musculoskeletal: Positive: Strength Intact, ROM Intact, No Edema Neurological Exam: Normal Psychological Exam: Normal Skin Exam: Normal Knee Pain Course/Dx - Differential Dx/Diagnosis Differential Diagnosis/HQI/PQRI: Fracture (Closed), Fracture (Open), Internal Derangement Of Knee, Sprain, Strain Provider Diagnoses: RIGHT KNEE PAIN Discharge - Discharge Plan Condition: Stable Disposition: HOME Patient Education Materials: Knee Pain (ED) Forms: *Work Release Referrals: [facility] [Outside] [facility] [Outside] No Primary Care Phys,NOPCP [Primary Care Provider] -
== END 2017-05-07 17:00 | disposition home or self-care (01) ==
LOC: UCEAST 15:56
DX: M25.561 Pain in right knee (principal); Z88.5 Allergy status to narcotic agent; Z87.891 Personal history of nicotine dependence
CPT/HCPCS: 99212; G0463

== ENCOUNTER → 2017-06-04 20:23 | Emergency (ER) | payer SELFPAY ==
--- NOTE | 2017-06-04 20:26 | UC ---
Lower Extremity/Ankle HPI - HPI Summary HPI Summary: 31 YEAR OLD MALE PRESENTS WITH COMPLAINS OF RIGHT ANKLE SWELLING AFTER STEPPING IN A POT HOLE. - History of Current Complaint Stated Complaint: FOOT PAIN Time Seen by Provider: 06/04/17 20:24 Hx Obtained From: Patient Onset/Duration: Sudden Onset Severity Initially: Moderate Severity Currently: Moderate Pain Scale Used: 0-10 Numeric - 5 Aggravating Factor(s): Standing Alleviating Factor(s): Rest, Elevation, Ice - Allergies/Home Medications Allergies/Adverse Reactions: Allergies Allergy/AdvReac Type Severity Reaction Status Date / Time Tramadol [From Ultracet] Allergy GI Upset Verified 05/07/17 16:34 NSAIDs AdvReac Severe GI Upset Verified 05/07/17 16:34 PMH/Surg Hx/FS Hx/Imm Hx Other History Of: Negative For: HIV, Hepatitis B, Hepatitis C, Anticoagulant Therapy - Surgical History Surgical History: Yes Surgery Procedure, Year, and Place: no SX to rt upper extremity - Family History Known Family History: Positive: Hypertension Negative: Cardiac Disease, Diabetes, Renal Disease - Social History Alcohol Use: None Substance Use Type: None Smoking Status (MU): Never Smoked Tobacco Type: Smokeless Tobacco Amount Used/How Often: 1 can daily Length of Time of Smoking/Using Tobacco: 3-4 years Have You Smoked in the Last Year: No - Immunization History Most Recent Influenza Vaccination: none Review of Systems Constitutional: Negative Skin: Negative Eyes: Negative ENT: Negative Respiratory: Negative Cardiovascular: Negative Gastrointestinal: Negative Genitourinary: Negative Motor: Negative Neurovascular: Negative Musculoskeletal: Other: - RIGHT CALF SWELLING Neurological: Negative Psychological: Negative All Other Systems Reviewed And Are Negative: Yes Physical Exam Triage Information Reviewed: Yes Eye Exam: Normal ENT Exam: Normal Dental Exam: Normal Neck exam: Normal Neck: Positive: 1 Respiratory Exam: Normal Cardiovascular Exam: Normal Abdominal Exam: Normal Musculoskeletal: Positive: Other: - RIGHT CALDF SWELLING Neurological Exam: Normal Psychological Exam: Normal Skin Exam: Normal Lower Extremity Course/Dx - Differential Dx/Diagnosis Provider Diagnoses: RIGHT CALF SWELLING Discharge - Discharge Plan Condition: Stable Disposition: HOME Prescriptions: Acetaminophen [Tylenol] 650 mg PO Q6H PRN #100 cap PRN Reason: Pain Patient Education Materials: Foot Sprain (ED) Referrals: Gustavo Dupree MD [Medical Doctor] - Niurka Pineda MD [Primary Care Provider] -
[2017-06-04 20:30] VITALS: BP 113/76
--- NOTE | 2017-06-04 20:58 | RAD ---
INDICATION: Left ankle injury COMPARISON: None TECHNIQUE: AP, lateral, and oblique views were obtained. FINDINGS: There is no acute fracture or dislocation. There is no significant soft tissue swelling. IMPRESSION: NO ACUTE FRACTURE.
--- NOTE | 2017-06-04 20:58 | RAD ---
INDICATION: Left foot injury COMPARISON: None TECHNIQUE: AP, lateral, and oblique views were obtained. FINDINGS: There is no acute fracture or dislocation. There is no significant soft tissue swelling. There are Achilles and plantar calcaneal spurs. IMPRESSION: NO ACUTE FRACTURE.
== END | disposition home or self-care (01) ==
LOC: UCEAST 20:23
DX: R22.41 Localized swelling, mass and lump, right lower limb (principal); Z88.6 Allergy status to analgesic agent; Z88.5 Allergy status to narcotic agent; Z87.891 Personal history of nicotine dependence
CPT/HCPCS: 99212; G0463

== ENCOUNTER 2017-06-04 21:36 | Emergency (ER) | payer SELFPAY ==
[2017-06-04 22:55] VITALS: BP 132/73
[2017-06-05] MEDS ORDERED: Penicillin VK TAB* 250 MG PO ONE (00:25)
[2017-06-05] MEDS ORDERED: oxyCODONE/Acetamin 5/325 MG* TAB PO ONE (00:26)
--- NOTE | 2017-06-05 00:27 | ED ---
Throat Pain/Nasal Congestion - HPI Summary HPI Summary: 31M presents with dental pain in left upper dental pain for a day. tried ibuprofen, tyenlol, oragel with relief. he denies any fever, swelling around eyes or pain with eye movement. he denies any drainage. he has not contacted his dentist. - History of Current Complaint Chief Complaint: EDDentalPain Time Seen by Provider: 06/04/17 23:52 - Allergies/Home Medications Allergies/Adverse Reactions: Allergies Allergy/AdvReac Type Severity Reaction Status Date / Time Tramadol [From Ultracet] Allergy GI Upset Verified 05/07/17 16:34 NSAIDs AdvReac Severe GI Upset Verified 05/07/17 16:34 PMH/Surg Hx/FS Hx/Imm Hx Endocrine/Hematology History: Denies: Hx Anticoagulant Therapy, Hx Diabetes, Hx Thyroid Disease Cardiovascular History: Reports: Hx Hypertension Denies: Hx Congestive Heart Failure, Hx Deep Vein Thrombosis, Hx Myocardial Infarction, Hx Pacemaker/ICD Respiratory History: Denies: Hx Asthma, Hx Chronic Obstructive Pulmonary Disease (COPD), Hx Lung Cancer, Hx Pneumonia, Hx Pulmonary Embolism GI History: Denies: Hx Gall Bladder Disease, Hx Gastrointestinal Bleed, Hx Ulcer, Hx Urosepsis History: Denies: Hx Kidney Stones, Hx Renal Disease Neurological History: Denies: Hx Dementia, Hx Migraine, Hx Seizures, Hx Transient Ischemic Attacks (TIA) Psychiatric History: Denies: Hx Anxiety, Hx Depression, Hx Schizophrenia, Hx Bipolar Disorder - Surgical History Surgery Procedure, Year, and Place: no SX to rt upper extremity Infectious Disease History: Denies: Hx Clostridium Difficile, Hx Hepatitis, Hx Human Immunodeficiency Virus (HIV), Hx of Known/Suspected MRSA, Hx Shingles, Hx Tuberculosis, Hx Known/ Suspected VRE, Hx Known/Suspected VRSA, History Other Infectious Disease, Traveled Outside the [place] in Last 30 Days - Family History Known Family History: Positive: Hypertension Negative: Cardiac Disease, Diabetes, Renal Disease - Social History Alcohol Use: None Substance Use Type: Reports: None Smoking Status (MU): Never Smoked Tobacco Type: Smokeless Tobacco Amount Used/How Often: 1 can daily Length of Time of Smoking/Using Tobacco: 3-4 years Have You Smoked in the Last Year: No Review of Systems Negative: Fever Positive: Dental Pain Negative: Chest Pain Negative: Shortness Of Breath All Other Systems Reviewed And Are Negative: Yes Physical Exam Triage Information Reviewed: Yes Vital Signs On Initial Exam: Initial Vitals Temp Pulse Resp BP Pulse Ox 98.6 F 82 20 139/70 100 06/04/17 22:15 06/04/17 22:15 06/04/17 22:15 06/04/17 22:15 06/04/17 22:15 Vital Signs Reviewed: Yes Appearance: Positive: Pain Distress Skin: Positive: Warm, Dry Head/Face: Positive: Normal Head/Face Inspection Eyes: Positive: Normal, EOMI, ERIC, Conjunctiva Clear ENT: Positive: Normal ENT inspection, Pharynx normal, TMs normal. Negative: Trismus Dental: Positive: Percussion Tenderness @ - 13 Respiratory/Lung Sounds: Positive: Clear to Auscultation, Breath Sounds Present Cardiovascular: Positive: Normal, RRR Diagnostics - Vital Signs Vital Signs Temp Pulse Resp BP Pulse Ox 06/04/17 22:54 98.6 F 80 16 132/73 06/04/17 22:15 98.6 F 82 20 139/70 100 - Laboratory Lab Statement: Any lab studies that have been ordered have been reviewed, and results considered in the medical decision making process. EENT Course/Dx - Course Course Of Treatment: 31M presents with dental pain in left upper dental pain for a day. tried ibuprofen, tyenlol, oragel with relief. he denies any fever, swelling around eyes or pain with eye movement. he denies any drainage. he has not contacted his dentist. on exam has tenderness at tooth 13. in past has pain there and says that can not afford root canal at this time. patient is known drug seeker. discussed with patient that can not keep prescribing narcoctic for tooth and that needs to follow up with dentist. will only write for 3 narcotics. patient understands and agrees with plan. - Differential Diagnoses Differential Diagnoses: Dental Abscess, Dental Caries, Fractured Tooth - Diagnoses Provider Diagnoses: Pain, dental Discharge - Discharge Plan Condition: Good Disposition: HOME Prescriptions: Penicillin VK TAB* [Penicillin VK 250 mg Tab*] 500 mg PO QID #27 tab oxyCODONE/Acetamin 5/325 MG* [Percocet 5/325 TAB*] 1 tab PO Q8H PRN #3 tab MDD 3 PRN Reason: Pain Patient Education Materials: Toothache (ED) Referrals: Niurka Pineda MD [Primary Care Provider] - Additional Instructions: Take antibiotics: 4 times a day for 7 days, first dose given in ED Use tyenlol every 6 hours and narcotic for break through pain at night Avoid hard, crunchy food until seen by dentist Follow up with dentist as soon as possible Return to ED if develop fever, shortness of breath, pain with eye movement or swelling around eye Images - Images Dental: 1 - dental pain
== END 2017-06-05 00:49 | disposition home or self-care (01) ==
LOC: ED 21:36
DX: K08.89 Other specified disorders of teeth and supporting structures (principal)
CPT/HCPCS: 99282; A9270-GY

== ENCOUNTER 2017-06-07 16:47 | Emergency (ER) | payer SELFPAY ==
[2017-06-07 16:56] VITALS: BP 100/54
--- NOTE | 2017-06-07 17:35 | UC ---
Hand/Wrist HPI - HPI Summary HPI Summary: 31 yo male back handed a tree as he swatted at a fly right hand pain eusebio 3 MCs - History Of Current Complaint Chief Complaint: UCUpperExtremity Stated Complaint: RIGHT HAND INJURY Time Seen by Provider: 06/07/17 17:27 Hx Obtained From: Patient Onset/Duration: Sudden Onset, Lasting Hours Severity Initially: Moderate Severity Currently: Moderate Pain Intensity: 4 Pain Scale Used: 0-10 Numeric Character Of Pain: Dull, Aching Aggravating Factor(s): Movement Alleviating: Rest Associated Signs And Symptoms: Positive: Swelling - Allergies/Home Medications Allergies/Adverse Reactions: Allergies Allergy/AdvReac Type Severity Reaction Status Date / Time Tramadol [From Ultracet] Allergy GI Upset Verified 06/07/17 16:56 NSAIDs AdvReac Severe GI Upset Verified 06/07/17 16:56 PMH/Surg Hx/FS Hx/Imm Hx Previously Healthy: Yes Cardiovascular History: Hypertension Other History Of: Negative For: HIV, Hepatitis B, Hepatitis C, Anticoagulant Therapy - Surgical History Surgical History: Yes Surgery Procedure, Year, and Place: no SX to rt upper extremity - Family History Known Family History: Positive: Hypertension, Diabetes Negative: Cardiac Disease, Renal Disease - Social History Alcohol Use: None Substance Use Type: None Smoking Status (MU): Never Smoked Tobacco Type: Smokeless Tobacco Amount Used/How Often: 1 can daily Length of Time of Smoking/Using Tobacco: 3-4 years Have You Smoked in the Last Year: No - Immunization History Most Recent Influenza Vaccination: none Review of Systems Constitutional: Negative Skin: Negative Eyes: Negative ENT: Negative Respiratory: Negative Cardiovascular: Negative Gastrointestinal: Negative Genitourinary: Negative Motor: Negative Neurovascular: Negative Musculoskeletal: Arthralgia, Myalgia Neurological: Negative Psychological: Negative All Other Systems Reviewed And Are Negative: Yes Physical Exam Triage Information Reviewed: Yes Appearance: Well-Appearing, No Pain Distress, Well-Nourished Vital Signs: Initial Vital Signs Temp 99.5 F 06/07/17 16:53 Pulse 97 06/07/17 16:53 Resp 16 06/07/17 16:53 BP 100/54 06/07/17 16:53 Pulse Ox 100 06/07/17 16:53 Vital Signs Reviewed: Yes Eyes: Positive: Conjunctiva Clear ENT: Positive: Hearing grossly normal. Negative: Nasal congestion, Nasal drainage, Tonsillar exudate, Trismus, Muffled/hoarse voice Neck: Positive: Supple, Nontender Respiratory: Positive: Lungs clear, Normal breath sounds, No respiratory distress Cardiovascular: Positive: RRR, No Murmur, Pulses Normal Musculoskeletal: Positive: ROM Limited @ - right hand, Edema @ - dorsum of right hand Neurological: Positive: Alert, Muscle Tone Normal Psychological Exam: Normal Skin Exam: Normal Hand/Wrist Course/Dx - Differential Dx/Diagnosis Provider Diagnoses: right hand contusion Discharge - Discharge Plan Condition: Stable Disposition: HOME Patient Education Materials: Contusion in Adults (ED) Referrals: Niurka Pineda MD [Primary Care Provider] - 2 Weeks (if not better) Additional Instructions: activity as tolerated elevate and ice advil or aleve Images Hands: 1 - tender/swollen
--- NOTE | 2017-06-07 17:45 | RAD ---
HISTORY: Right hand injury, swelling, pain COMPARISONS: January 06, 2016 VIEWS: 2, Frontal and lateral views of the right hand FINDINGS: BONE DENSITY: Normal. BONES: There is no displaced fracture. JOINTS: There is no arthropathy. ALIGNMENT: There is no dislocation. SOFT TISSUES: Unremarkable. OTHER FINDINGS: None. IMPRESSION: NO ACUTE OSSEOUS INJURY. IF SYMPTOMS PERSIST, RECOMMEND REPEAT IMAGING.
== END 2017-06-07 17:53 | disposition home or self-care (01) ==
LOC: UCCORT 16:47
DX: S60.221A Contusion of right hand, initial encounter (principal); W22.09XA Striking against other stationary object, initial encounter; Y93.89 Activity, other specified; Y92.9 Unspecified place or not applicable; I10 Essential (primary) hypertension; Z88.6 Allergy status to analgesic agent; Z88.5 Allergy status to narcotic agent; F17.220 Nicotine dependence, chewing tobacco, uncomplicated
CPT/HCPCS: 99211; G0463

== ENCOUNTER 2017-06-12 12:52 | Emergency (ER) | payer SELFPAY ==
[2017-06-12 13:29] VITALS: BP 145/83
--- NOTE | 2017-06-12 13:38 | UC ---
Back Pain HPI - HPI Summary HPI Summary: This morning stretched the right side of his upper back when he leaned under a tree to "[employer] [employer]" - History of Current Complaint Chief Complaint: UCBackPain Stated Complaint: BACK INJURY Time Seen by Provider: 06/12/17 13:26 Hx Obtained From: Patient Onset/Duration: Sudden Onset, Lasting Hours, Still Present Timing: Constant Severity Initially: Moderate Severity Currently: Moderate Pain Intensity: 7 Pain Scale Used: 0-10 Numeric Back Pain: Is Discrete @ - right side of thorasic back below scapula Character: Aching, Throbbing, Spasmodic Aggravating: Movement Alleviating: Nothing Associated Signs And Symptoms: Positive: Negative Related History: Previous Back Injury - Allergies/Home Medications Allergies/Adverse Reactions: Allergies Allergy/AdvReac Type Severity Reaction Status Date / Time Tramadol [From Ultracet] Allergy GI Upset Verified 06/12/17 13:29 NSAIDs AdvReac Severe GI Upset Verified 06/12/17 13:29 PMH/Surg Hx/FS Hx/Imm Hx Previously Healthy: No Endocrine History: Dyslipidemia Cardiovascular History: Hypertension Other History Of: Negative For: HIV, Hepatitis B, Hepatitis C, Anticoagulant Therapy - Surgical History Surgical History: Yes Surgery Procedure, Year, and Place: no SX to rt upper extremity - Family History Known Family History: Positive: Hypertension, Diabetes Negative: Cardiac Disease, Renal Disease - Social History Occupation: Employed Full-time Lives: With Family Alcohol Use: None Substance Use Type: None Smoking Status (MU): Never Smoked Tobacco Type: Smokeless Tobacco Amount Used/How Often: 1 can daily Length of Time of Smoking/Using Tobacco: 3-4 years Have You Smoked in the Last Year: No Cessation Counseling: Counseled 3+Min - 10 Min - Immunization History Most Recent Influenza Vaccination: none Review of Systems Constitutional: Negative Skin: Negative Eyes: Negative ENT: Negative Respiratory: Negative Cardiovascular: Negative Gastrointestinal: Negative Genitourinary: Negative Motor: Negative Neurovascular: Negative Musculoskeletal: Negative, Myalgia - right side mid upper back Neurological: Negative Psychological: Negative All Other Systems Reviewed And Are Negative: Yes Physical Exam Triage Information Reviewed: Yes Appearance: Well-Appearing, No Pain Distress, Well-Nourished Vital Signs: Initial Vital Signs Temp 99.2 F 06/12/17 13:25 Pulse 110 06/12/17 13:25 Resp 20 06/12/17 13:25 BP 145/83 06/12/17 13:25 Pulse Ox 99 06/12/17 13:25 Vital Signs Reviewed: Yes Eye Exam: Normal Eyes: Positive: Conjunctiva Clear ENT Exam: Normal ENT: Positive: Normal ENT inspection, Hearing grossly normal. Negative: Nasal congestion, Nasal drainage, Trismus, Muffled/hoarse voice Dental Exam: Normal Neck exam: Normal Neck: Positive: Supple, Nontender, No Lymphadenopathy Respiratory Exam: Normal Respiratory: Positive: Chest non-tender, Lungs clear, Normal breath sounds, No respiratory distress, No accessory muscle use Cardiovascular Exam: Normal Cardiovascular: Positive: No Murmur, Pulses Normal, Brisk Capillary Refill, Tachycardia Musculoskeletal Exam: Normal Musculoskeletal: Positive: Strength Intact, ROM Intact, No Edema Neurological Exam: Normal Neurological: Positive: Alert, Muscle Tone Normal Psychological Exam: Normal Skin Exam: Normal Back Pain Course/Dx - Course Course Of Treatment: patient refused MOBIC, will continue flexeril, low impact stretches and exercise, nicotine cesasstion information, hypertension in poor control - Differential Dx/Diagnosis Differential Diagnosis/HQI/PQRI: Fracture, Herniated Disc, Strain, Sprain Provider Diagnoses: Thorasic muscle strain, nicotine dependent, hypertension in poor control Discharge - Discharge Plan Condition: Stable Disposition: HOME Patient Education Materials: How to Stop Smoking (ED), Hypertension (ED), Core Strengthening Exercises (GEN), Thoracic Back Strain (ED), How to Quit Using Smokeless Tobacco (ED) Forms: *Work Release Referrals: MIRANDA Bull [Primary Care Provider] - 1 Week
== END 2017-06-12 13:50 | disposition home or self-care (01) ==
LOC: UCEAST 12:52
DX: S29.012A Strain of muscle and tendon of back wall of thorax, initial encounter (principal); X50.1XXA Overexertion from prolonged static or awkward postures, initial encounter; E78.5 Hyperlipidemia, unspecified; I10 Essential (primary) hypertension; F17.290 Nicotine dependence, other tobacco product, uncomplicated; Z88.5 Allergy status to narcotic agent
CPT/HCPCS: 99211; G0463

== ENCOUNTER 2017-06-22 21:28 | Emergency (ER) | payer SELFPAY ==
[2017-06-22 21:50] VITALS: BP 127/78
--- NOTE | 2017-06-22 21:57 | UC ---
Lower Extremity/Ankle HPI - HPI Summary HPI Summary: Pt present with c/o of gradual onset of tenderness and pain left plantar aspect of mid foot and left great toe. 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 Denies injury or trauma - History of Current Complaint Chief Complaint: UCLowerExtremity Stated Complaint: LEFT GREAT TOE Time Seen by Provider: 06/22/17 21:36 Hx Obtained From: Patient Onset/Duration: Gradual Onset, Lasting Hours, Worse Since - onset Severity Initially: Mild Severity Currently: Moderate Aggravating Factor(s): Standing, Ambulation Alleviating Factor(s): Rest Able to Bear Weight: Yes - with c/o pain - Risk Factors Gout Risk Factors: Male DVT Risk Factors: Negative Septic Arthritis Risk Factor: Negative - Allergies/Home Medications Allergies/Adverse Reactions: Allergies Allergy/AdvReac Type Severity Reaction Status Date / Time Tramadol [From Ultracet] Allergy GI Upset Verified 06/22/17 21:38 NSAIDs AdvReac Severe GI Upset Verified 06/22/17 21:38 Home Medications: Home Medications Acetaminophen [Acetaminophen Extra Stren] 1,000 mg PO ONCE PRN 06/22/17 [ History Confirmed 06/22/17] PMH/Surg Hx/FS Hx/Imm Hx Previously Healthy: Yes Other History Of: Negative For: HIV, Hepatitis B, Hepatitis C, Anticoagulant Therapy - Surgical History Surgical History: None Surgery Procedure, Year, and Place: no SX to rt upper extremity - Family History Known Family History: Positive: Hypertension, Diabetes Negative: Cardiac Disease, Renal Disease - Social History Occupation: Employed Full-time Lives: With Family Alcohol Use: Rare Substance Use Type: None Smoking Status (MU): Never Smoked Tobacco Type: Smokeless Tobacco Amount Used/How Often: 1 can daily Length of Time of Smoking/Using Tobacco: 3-4 years Have You Smoked in the Last Year: No - Immunization History Most Recent Influenza Vaccination: none Review of Systems Constitutional: Negative Skin: Negative Eyes: Negative ENT: Negative Respiratory: Negative Cardiovascular: Negative Gastrointestinal: Negative Genitourinary: Negative Motor: Decreased ROM - pain with ROM left foot Neurovascular: Negative Musculoskeletal: Arthralgia - left foot, Myalgia - left foot Neurological: Negative Psychological: Negative Is Patient Immunocompromised?: No All Other Systems Reviewed And Are Negative: Yes Physical Exam Triage Information Reviewed: Yes Appearance: Well-Appearing Vital Signs: Initial Vital Signs Temp 98.4 F 06/22/17 21:30 Pulse 97 06/22/17 21:30 Resp 20 06/22/17 21:30 BP 127/78 06/22/17 21:30 Pulse Ox 100 06/22/17 21:30 Vital Signs Reviewed: Yes Eye Exam: Normal ENT Exam: Normal Neck exam: Normal Respiratory Exam: Normal Cardiovascular Exam: Normal Musculoskeletal Exam: Other Musculoskeletal: Positive: Edema @ - plantar aspect of left foot Neurological Exam: Normal Psychological Exam: Normal Skin Exam: Normal Lower Extremity Course/Dx - Differential Dx/Diagnosis Differential Diagnosis/HQI/PQRI: Gout, Tendonitis Provider Diagnoses: tendonitis left foot Discharge - Discharge Plan Condition: Stable Disposition: HOME Patient Education Materials: Tendinitis (ED), RICE Therapy (ED) Referrals: MIRANDA Bull [Primary Care Provider] - If Needed Additional Instructions: Please follow up with your PCP or return to clinic as needed. We have provided a referral to an orthopedic provider if needed.
== END 2017-06-22 21:57 | disposition home or self-care (01) ==
LOC: UCCORT 21:28
DX: M77.52 Other enthesopathy of left foot and ankle (principal); Z72.0 Tobacco use
CPT/HCPCS: 99211; G0463

== ENCOUNTER 2017-09-12 08:45 | Emergency (ER) | payer SELFPAY ==
--- NOTE | 2017-09-12 09:02 | UC ---
Back Pain HPI - HPI Summary HPI Summary: 32 year old male presents with right upper back pain after lifting a heavy box. - History of Current Complaint Chief Complaint: UCBackPain Stated Complaint: BACK PAIN Time Seen by Provider: 09/12/17 09:02 Hx Obtained From: Patient Onset/Duration: Sudden Onset Timing: Constant Severity Initially: Moderate Severity Currently: Moderate - Allergies/Home Medications Allergies/Adverse Reactions: Allergies Allergy/AdvReac Type Severity Reaction Status Date / Time Tramadol [From Ultracet] Allergy GI Upset Verified 09/12/17 09:02 NSAIDs AdvReac Severe GI Upset Verified 09/12/17 09:02 PMH/Surg Hx/FS Hx/Imm Hx Previously Healthy: Yes Other History Of: Negative For: HIV, Hepatitis B, Hepatitis C, Anticoagulant Therapy - Surgical History Surgical History: Yes Surgery Procedure, Year, and Place: no SX to rt upper extremity - Family History Known Family History: Positive: Hypertension, Diabetes Negative: Cardiac Disease, Renal Disease - Social History Alcohol Use: None Substance Use Type: None Smoking Status (MU): Never Smoked Tobacco Type: Smokeless Tobacco Amount Used/How Often: 1 can daily Length of Time of Smoking/Using Tobacco: 3-4 years Have You Smoked in the Last Year: No - Immunization History Most Recent Influenza Vaccination: none Review of Systems Constitutional: Negative Skin: Negative Eyes: Negative ENT: Negative Respiratory: Negative Cardiovascular: Negative Gastrointestinal: Negative Genitourinary: Negative Motor: Negative Neurovascular: Negative Musculoskeletal: Other: - right upper back pain Neurological: Negative Psychological: Negative All Other Systems Reviewed And Are Negative: Yes Physical Exam Triage Information Reviewed: Yes Vital Signs Reviewed: Yes Eye Exam: Normal ENT Exam: Normal Dental Exam: Normal Neck exam: Normal Neck: Positive: 1 Respiratory Exam: Normal Cardiovascular Exam: Normal Abdominal Exam: Normal Musculoskeletal: Positive: Other: - right upper back pain Neurological Exam: Normal Psychological Exam: Normal Skin Exam: Normal Back Pain Course/Dx - Differential Dx/Diagnosis Provider Diagnoses: right upper back pain Discharge - Discharge Plan Condition: Stable Disposition: HOME Prescriptions: Methocarbamol TAB* [Robaxin 500 MG TAB*] 500 mg PO TID PRN #30 tab PRN Reason: Spasms - Back Methylprednisolone [Medrol Dosepak 4 MG*] 4 mg PO .SEE ESSIE INSTRUCTION #21 tab Patient Education Materials: Low Back Strain (ED), Acute Low Back Pain (ED) Forms: *Work Release Referrals: MIRANDA Bull [Primary Care Provider] - Fidel Hernandez [Physical Therapist] -
[2017-09-12 09:09] VITALS: BP 120/74
== END 2017-09-12 09:22 | disposition home or self-care (01) ==
LOC: UCCORT 08:45
DX: M54.6 Pain in thoracic spine (principal); X50.0XXA Overexertion from strenuous movement or load, initial encounter; Y93.89 Activity, other specified; Y92.9 Unspecified place or not applicable; Y99.9 Unspecified external cause status
CPT/HCPCS: 99212; G0463

== ENCOUNTER 2017-11-04 12:40 | Emergency (ER) | payer SELFPAY ==
[2017-11-04 12:55] VITALS: BP 133/82
--- NOTE | 2017-11-04 13:21 | UC ---
UC Dental HPI - HPI Summary HPI Summary: continued upper left dental pain--got worse again this morning---has not had insurance or money to see dentist - History of Current Complaint Chief Complaint: UCDentalProblem Stated Complaint: DENTAL COMPLAINT Time Seen by Provider: 11/04/17 12:53 Hx Obtained From: Patient Onset/Duration: Lasting Weeks, Worse Since - this morning Severity: Moderate Alleviating Factor(s): Nothing Related History: Previous Dental Care on Same Tooth, Swelling - Allergies/Home Medications Allergies/Adverse Reactions: Allergies Allergy/AdvReac Type Severity Reaction Status Date / Time Tramadol [From Ultracet] Allergy GI Upset Verified 11/04/17 12:54 NSAIDs AdvReac Severe GI Upset Verified 11/04/17 12:54 PMH/Surg Hx/FS Hx/Imm Hx Previously Healthy: No Endocrine History: Dyslipidemia Cardiovascular History: Hypertension Other History Of: Negative For: HIV, Hepatitis B, Hepatitis C, Anticoagulant Therapy - Surgical History Surgical History: Yes Surgery Procedure, Year, and Place: no SX to rt upper extremity - Family History Known Family History: Positive: Hypertension, Diabetes Negative: Cardiac Disease, Renal Disease - Social History Occupation: Employed Full-time Lives: With Family Alcohol Use: None Substance Use Type: None Smoking Status (MU): Never Smoked Tobacco Type: Smokeless Tobacco Amount Used/How Often: 1 can daily Length of Time of Smoking/Using Tobacco: 3-4 years Have You Smoked in the Last Year: No Cessation Counseling: Patient Advised to Stop - Immunization History Most Recent Influenza Vaccination: none Review of Systems Constitutional: Negative Skin: Negative Eyes: Negative ENT: Dental Pain - left upper Respiratory: Negative Cardiovascular: Negative Gastrointestinal: Negative Genitourinary: Negative Motor: Negative Neurovascular: Negative Musculoskeletal: Negative Neurological: Negative Psychological: Negative Is Patient Immunocompromised?: No All Other Systems Reviewed And Are Negative: Yes Physical Exam Triage Information Reviewed: Yes Appearance: Well-Appearing, No Pain Distress, Obese Vital Signs: Initial Vital Signs Temp 98.3 F 11/04/17 12:52 Pulse 116 11/04/17 12:52 Resp 14 11/04/17 12:52 BP 133/82 11/04/17 12:52 Vital Signs Reviewed: Yes Eye Exam: Normal Eyes: Positive: Conjunctiva Clear ENT Exam: Normal ENT: Positive: Normal ENT inspection, Hearing grossly normal. Negative: Nasal congestion, Nasal drainage, Trismus, Muffled voice, Hoarse voice, Dental tenderness, Sinus tenderness Dental Exam: Other Dental: Positive: Gross Decay/Caries @ - left upper [place] and molars Neck exam: Normal Neck: Positive: Supple, Nontender, No Lymphadenopathy Respiratory Exam: Normal Respiratory: Positive: Chest non-tender, Lungs clear, Normal breath sounds, No respiratory distress, No accessory muscle use Cardiovascular Exam: Normal Cardiovascular: Positive: RRR, No Murmur, Pulses Normal, Brisk Capillary Refill Musculoskeletal Exam: Normal Musculoskeletal: Positive: Strength Intact, ROM Intact Neurological Exam: Normal Neurological: Positive: Alert, Muscle Tone Normal Psychological Exam: Normal Skin Exam: Normal Dental Complaint Course/Dx - Course Course Of Treatment: encourage patient to seek dental care, also to [facility]hesk with the [facility] - Differential Dx/Diagnosis Provider Diagnoses: continued and worsening dental pain Discharge - Discharge Plan Condition: Stable Disposition: HOME Prescriptions: Amoxicillin PO (*) [Amoxicillin 500 MG CAP*] 500 mg PO TID #30 cap oxyCODONE/Acetamin 5/325 MG* [Percocet 5/325 TAB*] 1 tab PO Q6H PRN #6 tab MDD 4 PRN Reason: Pain - Moderate To Severe Patient Education Materials: Dental Abscess (ED), Toothache (ED) Referrals: [facility] [Outside] - 2 Days MIRANDA Bull [Primary Care Provider] - Additional Instructions: The Clinic is open Monday and --please go to clinic and inquire about emergency dental assistance
== END 2017-11-04 13:20 | disposition home or self-care (01) ==
LOC: UCCORT 12:40
DX: K08.89 Other specified disorders of teeth and supporting structures (principal); F17.290 Nicotine dependence, other tobacco product, uncomplicated; I10 Essential (primary) hypertension; Z88.5 Allergy status to narcotic agent; Z88.8 Allergy status to other drugs, medicaments and biological substances
CPT/HCPCS: 99211; G0463

== ENCOUNTER 2017-11-07 17:28 | Emergency (ER) | payer SELFPAY ==
[2017-11-07 18:45] VITALS: BP 126/82
--- NOTE | 2017-11-07 19:23 | UC ---
Dental HPI - HPI Summary HPI Summary: 32 y/o male presents to the urgent care c/o dental pain in the LF upper jaw for the past 4 days. Pt reports he was seen here at the clinic on 11/04/2017 and RX Amoxicillin and Oxycodone. Pt feel ABx is not helping. He has an appt with Dentist schedule for 11/10/2017 at [place]. Pain is 3/10 at rest and 8/10 with chewing. Pt denies swelling, BILLINGSLEY, fever, SOB, chest pain, abdominal pain, N/V/D - History of Current Complaint Chief Complaint: UCDentalProblem Stated Complaint: TOOTH ACHE Time Seen by Provider: 11/07/17 19:22 Hx Obtained From: Patient Onset/Duration: Gradual Onset, Lasting Days - 4 days, Still Present Severity: Moderate Pain Intensity: 8 Pain Scale Used: 0-10 Numeric Aggravating Factor(s): Chewing Alleviating Factor(s): OTC Meds Related History: Other - gross decay - Allergies/Home Medications Allergies/Adverse Reactions: Allergies Allergy/AdvReac Type Severity Reaction Status Date / Time Tramadol [From Ultracet] Allergy GI Upset Verified 11/07/17 18:45 NSAIDs AdvReac Severe GI Upset Verified 11/07/17 18:45 PMH/Surg Hx/FS Hx/Imm Hx Previously Healthy: Yes Cardiovascular History: Hypertension Other History Of: Negative For: HIV, Hepatitis B, Hepatitis C, Anticoagulant Therapy - Surgical History Surgical History: None Surgery Procedure, Year, and Place: no SX to rt upper extremity - Family History Known Family History: Positive: Hypertension, Diabetes Negative: Cardiac Disease, Renal Disease - Social History Occupation: Employed Full-time Lives: With Family Alcohol Use: None Substance Use Type: None Smoking Status (MU): Never Smoked Tobacco Type: Smokeless Tobacco Amount Used/How Often: 1 can daily Length of Time of Smoking/Using Tobacco: 3-4 years Have You Smoked in the Last Year: No - Immunization History Most Recent Influenza Vaccination: none Review of Systems Constitutional: Negative Skin: Negative Eyes: Negative ENT: Dental Pain Respiratory: Negative Cardiovascular: Negative Gastrointestinal: Negative Genitourinary: Negative Motor: Negative Neurovascular: Negative Musculoskeletal: Negative Neurological: Negative Psychological: Negative Is Patient Immunocompromised?: No All Other Systems Reviewed And Are Negative: Yes Physical Exam Triage Information Reviewed: Yes Vital Signs: Initial Vital Signs Temp 99.2 F 11/07/17 18:40 Pulse 89 11/07/17 18:40 Resp 16 11/07/17 18:40 BP 126/82 11/07/17 18:40 Pulse Ox 100 11/07/17 18:40 - Additional Comments Vital Signs Reviewed: Yes General: well developed. well nourished male sitting in the examining table w/o any apparent distress Eyes: Positive: Conjunctiva Clear - PERRLA, EOMI, fundi grossly normal ENT: Positive: Normal ENT inspection, Hearing grossly normal, Pharyngeal erythema, TMs normal, Uvula midline. Negative: Tonsillar swelling, Tonsillar exudate, Trismus Dental: Positive: Percussion Tenderness @ - molar 15, Gross Decay/Caries @ - molar 15, no Abscess , Cervical Lymphadenopathy - B/L anterior, Other: Neck: Positive: Supple, Nontender Respiratory: Positive: Chest non-tender, Lungs clear, Normal breath sounds, No respiratory distress Cardiovascular: Positive: RRR, No Murmur, Pulses Normal, Brisk Capillary Refill Abdomen Description: Positive: Nontender, No Organomegaly, Soft. Negative: CVA Tenderness (R), CVA Tenderness (L) Bowel Sounds: Positive: Present Musculoskeletal: Positive: Strength Intact, ROM Intact, No Edema Neurological Exam: Normal Psychological Exam: Normal Skin Exam: Normal Dental Complaint Course/Dx - Course Course Of Treatment: 32 y/o male presents to the urgent care c/o dental pain in the LF upper jaw for the past 4 days. Pt reports he was seen here at the clinic on 11/04/2017 and RX Amoxicillin and Oxycodone. Pt feel ABx is not helping. He has an appt with Dentist schedule for 11/10/2017 at [place]. Pain is 3/10 at rest and 8/10 with chewing. Pt denies swelling, B[place], fever, SOB, chest pain, abdominal pain, N/V/D. Hx obtained. Pt with #15 molar fracture and gross decay on examiantion. Pt declined Toradol inj and viscous Lidocaine for pain. Pt Rx clindamycin PO and Tylenol PO for pain. Pt strongly advised to f/ u with his Dentist on 11/10/2017 for further evaluation and treatment. Pt understood and agreed with plan of care. Left the clinic ambulating. - Differential Dx/Diagnosis Differential Diagnosis/Dx: Dental Abscess, Dental Caries, Fractured Tooth, Gingivitis, Peridontic Disease, Peritonsillar Abcess, Pharyngitis, Tonsillitis Provider Diagnoses: 1-LF # 15 toothache, and fracture with gross decay Discharge - Discharge Plan Condition: Stable Disposition: HOME Prescriptions: Acetaminophen TAB* [Tylenol TAB*] 650 mg PO Q4H PRN #30 tab PRN Reason: Pain Clindamycin Cap(NF) [Clindamycin Cap 300 mg Cap(NF)] 300 mg PO TID #30 cap Patient Education Materials: Toothache (ED) Referrals: MIRANDA Bull [Primary Care Provider] - 2 Days Additional Instructions: 1-Please take full course of antibiotic to avoid resistance. 2- Take Tylenol PO q4-6hrs as instructed after meals to alleviate pain and swelling. 3- F/u with your Dentiston 11/10/2017 for further treatment. 4- If symptoms do not improve or worsen please return to the urgent care or f/u with your PCP for further evaluation and treatment
== END 2017-11-07 19:51 | disposition home or self-care (01) ==
LOC: UCCORT 17:28
DX: K08.89 Other specified disorders of teeth and supporting structures (principal); K03.81 Cracked tooth; K02.9 Dental caries, unspecified; I10 Essential (primary) hypertension; Z88.6 Allergy status to analgesic agent; F17.220 Nicotine dependence, chewing tobacco, uncomplicated
CPT/HCPCS: 99212; G0463

== ENCOUNTER 2017-11-17 16:35 | Emergency (ER) | payer SELFPAY ==
[2017-11-17 18:41] VITALS: BP 135/82
[2017-11-17] MEDS ORDERED: Calcium Carbonate CHEW TAB* 500 MG (TUMS) PO ONE (18:42)
--- NOTE | 2017-11-17 19:37 | UC ---
UC Dental HPI - HPI Summary HPI Summary: Pt c/o gradual onset of left upper gum swelling and left tooth pain - History of Current Complaint Chief Complaint: UCDentalProblem Stated Complaint: ORAL COMPLAINT Time Seen by Provider: 11/17/17 18:33 Hx Obtained From: Patient Onset/Duration: Gradual Onset, Lasting Days, Still Present Severity: Moderate Pain Intensity: 5 Aggravating Factor(s): Chewing Related History: Swelling - Allergies/Home Medications Allergies/Adverse Reactions: Allergies Allergy/AdvReac Type Severity Reaction Status Date / Time MS Tramadol [From Ultracet] Allergy GI Upset Verified 11/17/17 18:34 MS NSAIDs [NSAIDs] AdvReac Severe GI Upset Verified 11/17/17 18:34 PMH/Surg Hx/FS Hx/Imm Hx Previously Healthy: Yes Other History Of: Negative For: HIV, Hepatitis B, Hepatitis C, Anticoagulant Therapy - Surgical History Surgical History: None Surgery Procedure, Year, and Place: no SX to rt upper extremity - Family History Known Family History: Positive: Hypertension, Diabetes Negative: Cardiac Disease, Renal Disease - Social History Occupation: Employed Full-time Lives: With Family Alcohol Use: None Substance Use Type: None Smoking Status (MU): Never Smoked Tobacco Type: Smokeless Tobacco Amount Used/How Often: 1 can daily Length of Time of Smoking/Using Tobacco: 3-4 years Have You Smoked in the Last Year: No - Immunization History Most Recent Influenza Vaccination: none Review of Systems Constitutional: Negative Skin: Negative Eyes: Negative ENT: Dental Pain Respiratory: Negative Cardiovascular: Negative Gastrointestinal: Negative Genitourinary: Negative Motor: Negative Neurovascular: Negative Musculoskeletal: Negative Neurological: Negative Psychological: Negative Is Patient Immunocompromised?: No All Other Systems Reviewed And Are Negative: Yes Physical Exam Triage Information Reviewed: Yes Appearance: Well-Appearing Vital Signs: Initial Vital Signs Temp 98.3 F 11/17/17 18:35 Pulse 112 11/17/17 18:35 BP 135/82 11/17/17 18:35 Pulse Ox 100 11/17/17 18:35 Vital Signs Reviewed: Yes Eye Exam: Normal ENT Exam: Normal Dental Exam: Other Dental: Positive: Percussion Tenderness @ - left upper molar, right cheek swelling and tenderness, Neck exam: Normal Respiratory Exam: Normal Cardiovascular: Positive: Tachycardia Musculoskeletal Exam: Normal Neurological Exam: Normal Psychological Exam: Normal Skin Exam: Normal Dental Complaint Course/Dx - Course Course Of Treatment: I discussed with the pt the need to follow up with his dental care provider as scheduled on 11/21/17 - Differential Dx/Diagnosis Differential Diagnosis/Dx: Dental Abscess Provider Diagnoses: Dental abscess Discharge - Discharge Plan Condition: Stable Disposition: HOME Prescriptions: Clindamycin Cap(NF) [Clindamycin Cap 300 mg Cap(NF)] 300 mg PO Q8H #30 cap oxyCODONE/Acetamin 5/325 MG* [Percocet 5/325 TAB*] 1 tab PO Q8H PRN #9 tab MDD 3 PRN Reason: Pain oxyCODONE/Acetamin 5/325 MG* [Percocet 5/325 TAB*] 1 tab PO Q8H PRN #9 tab MDD 3 PRN Reason: Pain Patient Education Materials: Dental Abscess (ED) Referrals: MIRANDA Bull [Primary Care Provider] - If Needed Additional Instructions: Please follow up with your dental care provider as scheduled on 11/21/17.
== END 2017-11-17 19:36 | disposition home or self-care (01) ==
LOC: UCCORT 16:35
DX: K04.7 Periapical abscess without sinus (principal); R00.0 Tachycardia, unspecified; Z88.6 Allergy status to analgesic agent; Z88.5 Allergy status to narcotic agent; F17.220 Nicotine dependence, chewing tobacco, uncomplicated
CPT/HCPCS: 99212; G0463

== ENCOUNTER 2018-02-06 22:55 | Emergency (ER) | payer OTHER ==
[2018-02-06 22:59] VITALS: BP 133/74
--- NOTE | 2018-02-06 23:37 | ED ---
Neto Cutler Jennifer, scribed for Ayush Riggs MD on 02/06/18 at 2318 . Throat Pain/Nasal Congestion - HPI Summary HPI Summary: The patient is a 32 year old male who complains of dental pain for the past few days. The patient explains that when he bites down on food, his whole left side feels like tooth ache with all the teeth. He has an appointment with his dentist in three days, but would like something to keep his pain at bay until then. - History of Current Complaint Chief Complaint: EDDentalPain Time Seen by Provider: 02/06/18 23:05 Hx Obtained From: Patient Onset/Duration: Sudden Onset, Lasting Days - few days, Still Present Severity: Mild Cough: None - Allergies/Home Medications Allergies/Adverse Reactions: Allergies Allergy/AdvReac Type Severity Reaction Status Date / Time tramadol Allergy GI Upset Verified 02/06/18 23:00 PMH/Surg Hx/FS Hx/Imm Hx Endocrine/Hematology History: Denies: Hx Anticoagulant Therapy, Hx Diabetes, Hx Thyroid Disease Cardiovascular History: Reports: Hx Hypertension Denies: Hx Congestive Heart Failure, Hx Deep Vein Thrombosis, Hx Myocardial Infarction, Hx Pacemaker/ICD Respiratory History: Denies: Hx Asthma, Hx Chronic Obstructive Pulmonary Disease (COPD), Hx Lung Cancer, Hx Pneumonia, Hx Pulmonary Embolism GI History: Denies: Hx Gall Bladder Disease, Hx Gastrointestinal Bleed, Hx Ulcer, Hx Urosepsis History: Denies: Hx Kidney Stones, Hx Renal Disease Neurological History: Denies: Hx Dementia, Hx Migraine, Hx Seizures, Hx Transient Ischemic Attacks (TIA) Psychiatric History: Denies: Hx Anxiety, Hx Depression, Hx Schizophrenia, Hx Bipolar Disorder - Surgical History Surgery Procedure, Year, and Place: no SX to rt upper extremity Infectious Disease History: No Infectious Disease History: Denies: Hx Clostridium Difficile, Hx Hepatitis, Hx Human Immunodeficiency Virus (HIV), Hx of Known/Suspected MRSA, Hx Shingles, Hx Tuberculosis, Hx Known/ Suspected VRE, Hx Known/Suspected VRSA, History Other Infectious Disease, Traveled Outside the [place] in Last 30 Days - Family History Known Family History: Positive: Hypertension, Diabetes Negative: Cardiac Disease, Renal Disease - Social History Alcohol Use: None Substance Use Type: Reports: None Smoking Status (MU): Never Smoked Tobacco Type: Smokeless Tobacco Amount Used/How Often: 1 can daily Length of Time of Smoking/Using Tobacco: 3-4 years Have You Smoked in the Last Year: No Review of Systems Negative: Fever Positive: Dental Pain All Other Systems Reviewed And Are Negative: Yes Physical Exam - Summary Physical Exam Summary: Appearance: Well appearing, no pain distress Skin: warm, dry, reflects adequate perfusion Head/face: normal Eyes: EOMI, ERIC ENT: widespread dental decay, no localized gingival inflammation Neck: supple, non-tender Respiratory: CTA, breath sounds present Cardiovascular: RRR, pulses symmetrical Abdomen: non-tender, soft Bowel Sounds: present Musculoskeletal: normal, strength/ROM intact Neuro: normal, sensory motor intact, A&Ox3 Triage Information Reviewed: Yes Vital Signs On Initial Exam: Initial Vitals Temp Pulse Resp BP Pulse Ox 98.2 F 89 16 133/74 100 02/06/18 22:57 02/06/18 22:57 02/06/18 22:57 02/06/18 22:57 02/06/18 22:57 Vital Signs Reviewed: Yes Diagnostics - Vital Signs Vital Signs Temp Pulse Resp BP Pulse Ox 02/06/18 22:57 98.2 F 89 16 133/74 100 - Laboratory Lab Statement: Any lab studies that have been ordered have been reviewed, and results considered in the medical decision making process. EENT Course/Dx - Course Course Of Treatment: I reviewed his [employer] website and his prior visits. He has many visits both here and at [facility] for dental pain and other pains. I offered him anti-inflammatories which of course he said he was taking as well as dental block for pain. He refused all of this. There is no evidence for bruxism on exam he has no masseter spasm. He has wide spread dental decay. Suspected is opiate abuse. I offered him a she outlining local resources for those he used drugs which he refused. He states he has appointment with dental on Monday. On review of his old visits this is not an uncommon complaint - Diagnoses Provider Diagnoses: Pain, dental, Drug-seeking behavior Discharge - Sign-Out/Discharge Documenting (check all that apply): Discharge/Admit/Transfer - Discharge Plan Condition: Good Disposition: HOME Patient Education Materials: Toothache (ED) Referrals: Diane CoronadoDiane [Primary Care Provider] - Additional Instructions: See your dentist as scheduled on Monday. Continue ibuprofen. Use antibacterial mouthwash. Massage therapy may help. Return if worse or other concerns. Pamphlet regarding local resources for drug rehabilitation have been provided for you in case you feel you may have addiction. The documentation as recorded by the Neto logan Jennifer accurately reflects the service I personally performed and the decisions made by me, Ayush Riggs MD.
== END 2018-02-06 23:24 | disposition home or self-care (01) ==
LOC: ED 22:55
DX: K08.89 Other specified disorders of teeth and supporting structures (principal); Z76.5 Malingerer [conscious simulation]; I10 Essential (primary) hypertension; Z88.5 Allergy status to narcotic agent; F17.220 Nicotine dependence, chewing tobacco, uncomplicated
CPT/HCPCS: 99281

== ENCOUNTER 2018-03-14 19:39 | Emergency (ER) | payer OTHER ==
[2018-03-14 20:08] VITALS: BP 126/63
--- NOTE | 2018-03-14 20:53 | ED ---
Upper Extremity Pain - HPI Summary HPI Summary: 32 yr old male with right wrist and right elbow pain. Onset of symptoms this evening when he feel using a weed eater. He has no other complaints. Pain in the right wrist and right elbow. Some pain with supination of the right elbow. No neck shoulder pain. No focal weakness in hand. he was holding onto weed eater and clearing grass when he fell. - History of Current Complaint Chief Complaint: UCUpperExtremity Stated Complaint: RIGHT HAND INJURY Time Seen by Provider: 03/14/18 20:21 - Allergies/Home Medications Allergies/Adverse Reactions: Allergies Allergy/AdvReac Type Severity Reaction Status Date / Time tramadol Allergy GI Upset Verified 02/06/18 23:00 Home Medications: Home Medications Ibuprofen TAB* [Motrin TAB* 600 MG] 600 mg PO Q8H PRN 03/14/18 [History Confirmed 03/14/18] PMH/Surg Hx/FS Hx/Imm Hx Endocrine/Hematology History: Denies: Hx Anticoagulant Therapy, Hx Diabetes, Hx Thyroid Disease Cardiovascular History: Reports: Hx Hypertension Denies: Hx Congestive Heart Failure, Hx Deep Vein Thrombosis, Hx Myocardial Infarction, Hx Pacemaker/ICD Respiratory History: Denies: Hx Asthma, Hx Chronic Obstructive Pulmonary Disease (COPD), Hx Lung Cancer, Hx Pneumonia, Hx Pulmonary Embolism GI History: Denies: Hx Gall Bladder Disease, Hx Gastrointestinal Bleed, Hx Ulcer, Hx Urosepsis History: Denies: Hx Kidney Stones, Hx Renal Disease Neurological History: Denies: Hx Dementia, Hx Migraine, Hx Seizures, Hx Transient Ischemic Attacks (TIA) Psychiatric History: Denies: Hx Anxiety, Hx Depression, Hx Schizophrenia, Hx Bipolar Disorder - Surgical History Surgery Procedure, Year, and Place: no SX to rt upper extremity Infectious Disease History: No Infectious Disease History: Denies: Hx Clostridium Difficile, Hx Hepatitis, Hx Human Immunodeficiency Virus (HIV), Hx of Known/Suspected MRSA, Hx Shingles, Hx Tuberculosis, Hx Known/ Suspected VRE, Hx Known/Suspected VRSA, History Other Infectious Disease, Traveled Outside the [place] in Last 30 Days - Family History Known Family History: Positive: Hypertension, Diabetes Negative: Cardiac Disease, Renal Disease - Social History Alcohol Use: None Substance Use Type: Reports: None Smoking Status (MU): Never Smoked Tobacco Type: Smokeless Tobacco Amount Used/How Often: 1 can daily Length of Time of Smoking/Using Tobacco: 3-4 years Have You Smoked in the Last Year: No Review of Systems Positive: Other - right wrist and elbow pain All Other Systems Reviewed And Are Negative: Yes Physical Exam Triage Information Reviewed: Yes Vital Signs On Initial Exam: Initial Vitals Temp Pulse Resp BP Pulse Ox 98.6 F 103 16 126/63 100 03/14/18 20:02 03/14/18 20:02 03/14/18 20:02 03/14/18 20:02 03/14/18 20:02 Vital Signs Reviewed: Yes Appearance: Positive: Well-Appearing, No Pain Distress Skin: Positive: Warm, Skin Color Reflects Adequate Perfusion Head/Face: Positive: Normal Head/Face Inspection Eyes: Positive: EOMI Neck: Positive: Supple, Nontender Respiratory/Lung Sounds: Positive: Clear to Auscultation, Breath Sounds Present Cardiovascular: Positive: RRR. Negative: Murmur Abdomen Description: Positive: Nontender Musculoskeletal: Positive: Strength/ROM Intact, Other - some tenderness over the right elbow and over the right wrist diffusely. Neuro vascular intact right hand. Good radial pulse. No gross deformity or STS, or bruise to the right arm.. Negative: Edema Right Neurological: Positive: Sensory/Motor Intact, Alert, Oriented to Person Place, Time, CN Intact II-III Psychiatric: Positive: Normal Diagnostics - Vital Signs Vital Signs Temp Pulse Resp BP Pulse Ox 03/14/18 20:02 98.6 F 103 16 126/63 100 - Laboratory Lab Statement: Any lab studies that have been ordered have been reviewed, and results considered in the medical decision making process. - Radiology wrist, elbow right Xray Interpretation: No Acute Changes Radiology Interpretation Completed By: Radiologist Course/Dx - Course Course Of Treatment: 32 yr old with contusion to elbow and wrist. DC home in stable condition. FU with pmd, ortho given as referenc.e - Diagnoses Provider Diagnoses: Sprain of wrist, right, Contusion of elbow, right Discharge - Sign-Out/Discharge Documenting (check all that apply): Discharge/Admit/Transfer - Discharge Plan Condition: Good Disposition: HOME Patient Education Materials: Contusion in Adults (ED), Wrist Sprain (ED) Referrals: MIRANDA Bull [Primary Care Provider] - - Billing Disposition and Condition Condition: GOOD Disposition: HOME
--- NOTE | 2018-03-14 21:04 | RAD ---
HISTORY: Fall, right elbow pain COMPARISONS: October 11, 2014 VIEWS: 4, Frontal, lateral, and oblique views of the right elbow FINDINGS: BONE DENSITY: Normal. BONES: There is no displaced fracture. JOINTS: There is no arthropathy. There is no posterior supracondylar fat pad to suggest a joint effusion. ALIGNMENT: There is no dislocation. SOFT TISSUES: Unremarkable. OTHER FINDINGS: None. IMPRESSION: NO ACUTE OSSEOUS INJURY. IF SYMPTOMS PERSIST, RECOMMEND REPEAT IMAGING.
--- NOTE | 2018-03-14 21:05 | RAD ---
HISTORY: Fall, right wrist pain COMPARISONS: January 06, 2016 VIEWS: 3, Frontal, lateral, and oblique views of the right wrist FINDINGS: BONE DENSITY: Normal. BONES: There is no displaced fracture. JOINTS: There is no arthropathy. ALIGNMENT: There is no dislocation. SOFT TISSUES: Unremarkable. OTHER FINDINGS: None. IMPRESSION: NO ACUTE OSSEOUS INJURY. IF SYMPTOMS PERSIST, RECOMMEND REPEAT IMAGING.
== END 2018-03-14 21:21 | disposition home or self-care (01) ==
LOC: UCCORT 19:39
DX: S63.501A Unspecified sprain of right wrist, initial encounter (principal); S50.01XA Contusion of right elbow, initial encounter; W18.30XA Fall on same level, unspecified, initial encounter; Y93.H2 Activity, gardening and landscaping; Y92.9 Unspecified place or not applicable; Z87.891 Personal history of nicotine dependence; Z88.5 Allergy status to narcotic agent
CPT/HCPCS: 99211; G0463

== ENCOUNTER 2018-05-06 19:43 | Emergency (ER) | payer MEDICAID ==
--- OUTSIDE RECORDS SUMMARY | 2018-05-06 19:49 | XMS REPORT | Continuity of Care Document ---
:1985 Author Organization [facility] Care Team Providers Name Role Phone BENNY BRIAN Admitting Physician BENNY BRIAN Attending Physician Allergies and Intolerances No Known Allergies Medications RxNorm Medication Dose Route Instructions Start Date End Date Status 945304 Penicillin V 500 mg oral orally 4 times per Active Potassium 500 MG day (10 days) Oral Tablet Problems No Data in the system Procedures No data in the system Results No data in the system Social History Code Code System Social History Description Dates Observed Observation [id number] SNOMED CT Current Smoking Current some day Status smoker UNK AdministrativeGender Sex Assigned At Unknown Vital Signs Code Code System Vitals Value Date 8310-5 [facility] Body Temperature 98.8 [degF] 04/08/2018 8865-8 [facility] Pulse Rate 91 {beats}/min 04/08/2018 9279-1 [facility] Respiratory Rate 16 /min 04/08/2018 40135-0 [facility] O2% BldC Oximetry 100 % 04/08/2018 8480-6 [facility] BP Systolic 127 mm[Hg] 04/08/2018 8462-4 [facility] BP Diastolic 77 mm[Hg] 04/08/2018 8302-2 [facility] Height 69 [in_i] 04/08/2018 66326-7 [facility] Weight 100 kg 04/08/2018 3140-1 [facility] Body surface area Derived from formula 2.15 m2 04/08/2018 27767-4 [facility] BMI (Body Mass Index) 32.6 kg/m2 04/08/2018 Goals Section No data in the system Health Concerns No data in the systemEncounter Diagnosis Date Code Code System Diagnosis Status K03.81 ICD10 CRACKED TOOTH Active Advance Directives No Data in the System Family History No data in the system Functional Status Code Functional Condition Code System Date Status Independent adls SNOMED CT 04/08/2018 Active Appears well nourished/hydrated SNOMED CT 04/08/2018 Active Immunizations No data in the system Medical Equipment No data in the system Mental Status Code Cognitive Condition Code System Date Status No acute distress SNOMED CT 04/08/2018 Active Oriented x [address] 04/08/2018 Active Skin warm & dry SNOMED CT 04/08/[address] 04/08/2018 Active Assessment and Plan Assessments No data in the systemPlan Of Treatment No data in the systemPending Tests No data in the system Hospital Discharge Instructions No data in the system Reason for Visit Reason for Visit Tooth Pain
--- OUTSIDE RECORDS SUMMARY | 2018-05-06 19:49 | XMS REPORT ---
:1985 Author Organization [facility] Care Team Providers Name Role Phone CHET HERNANDEZ Unavailable Unavailable [facility] Unavailable Allergies and Adverse Reactions Allergen Qualifier Severity Reaction(s) Comments No Known Drug Allergy Problems Problem Onset Date Resolved Date Status Comments Abscess Dental Caries May 02, 2018 Active Medications Medication Orders Details Tylenol Oral 1000 mg Amoxicillin Oral 500 mg (NOW x1) Administered Route Dose Bolus/Duration Rate/Duration Additive/Diluents/ Constituents Location Comments Date/Time Medications Tylenol Oral PO 1000 Start: mg 05/02/2018 00:55, Stop: 05/02/2018 00:55 Amoxicillin PO 500 Start: Oral mg 05/02/2018 02:40, Stop: 05/02/2018 02:40 Prescriptions Amoxicillin 500 mg tablets: Take 1 orally every 8 hours for 10 days. Dispense thirty (30). No refills. Hospital Discharge Medications Hospital Discharge Prescribed Medication Amoxicillin 500 mg tablets: Take 1 orally every 8 hours for 10 days. Dispense thirty (30). No refills. Procedures Procedure Date Performed Comments No information available Care Plan (Goals and Instructions) No plan. Functional Status Functional and Cognitive Assessment Documentation Date Condition Status No impairments noted 05/02/2018 Active Immunizations Medication Dose/Units Lot# Exp. 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 Results Test Result Flag Reference Range No information available Social History Social History Element Description Effective Dates smoking never smoker Unknown Vital Signs Weight: 101.1 kg stated at 05/02/2018 12:02:59 AMWeight: 223 lb stated at 2017 12:02:59 AMHeight: 175.2 cm Per Patient at 05/02/2018 12:02:59 AMHeight: 69 inches Per Patient at 05/02/2018 12:02:59 AMBMI (Body Mass Index): 32.9 kg/m2 at 05/02/2018 12:02:59 AM Date/Time Blood Pressure Heart Rate Respiratory Rate Temperature O2 Saturation 05/02/2018 129/76 mmHg 87 /minute 18 /minute 37.06 C 100% 2:43:00 AM 05/02/2018 132/78 mmHg 88 /minute 18 /minute 37.06 C 100% 12:03:17 AM Hospital Discharge Instructions Instruction Thank you for visiting the [facility]. You have been evaluated today by CHET HERNANDEZ DO for the following condition( s): Dental caries (extensive decay) INSTRUCTIONS Prescription Medications: Amoxicillin 500 mg tablets: Take 1 orally every 8 hours for 10 days. Dispense thirty (30). No refills. amoxicillin 500 mg tablet Take 1 tablet twice a day as directed for 10 days - - Dispense 20 tablet. Substitution permitted. Pharmacy - [id number] - [address], [place] [id number]. . Understanding of the discharge instructions verbalized by patient. Follow-up with: Dental Clinic [facility], Dentistry, , [address] [place], [address] Follow up in one week. Reason for referral: Follow up with your out of town dentist NEXT AVAILABLE APPOINTMENT. Summary of care provided to patient. ADDITIONAL INFORMATION Dental Cavity A dental cavity is a pit or crater in the surface of a tooth. This exposes the sensitive inner layer of the tooth and causes pain. If the cavity isnt treated, it will get bigger. It may enter the pulp a nd cause an infection or abscess in the bone at the root end (apex) of the tooth. An infection in the tooth is a much more serious problem than a cavity. If the tooth gets infected, you will need a root canal or the entire tooth taken out (extraction). The pain in your tooth may be made worse by eating sweets or drinking hot or cold beverages. It may spread from the tooth to your ear or the area of your jaw on the same side. Home careFollow these tips when caring for yourself at home: Avoid sweets and hot and cold foods and drinks. Your tooth may be sensitive to changes in temperature.If your tooth is chipped or cracked, or if there is a large open cavity, put oil of cloves directly o n the tooth to relieve pain. You can buy oil of cloves at [facility]. Some pharmacies carry an wlss-qxi-tedaypp "toothache kit." This contains a paste that you can put on the exposed tooth to make it less sensitive. Put a cold pack on your jaw over the sore area to help reduce pain.You may use mksu-ajx-whkhkmv medicine to ease pain, unless another medicine was prescribed. If you martinez ve chronic liver or kidney disease, talk with your healthcare provider before using acetaminophen or ibuprofen. Also talk with your provider if youve had a stomach ulcer or GI bleeding. If you have signs of an infection, you will be given an antibiotic. Take it as directed. Follow-up careFollow up with your dentist, or as advised. Your pain may go away with the treatment given today. But only a dentist can fully look at and treat this problem to prevent further tooth damage. Call 911Call 911 if any of these occur: Difficulty swallowing or breathingWeakness or faintingUnusual drowsinessHeadache or stiff neck When to seek medical adviceCall your healthcare provider right awayif any of these occur: Redness or swelling of the facePain gets worse or spreads to your neckFever of 100.5 F (38C) or higher, or as directed by your healthcare providerPus drains from the tooth or gum [phone] [email or web address]. [address] [place] [address], [place] [address]. All rights reserved. This information is not intended as a substitute for professional medical care. Always follow your healthcare professional's instructions. Dental Pain A crack or cavity in a tooth can cause tooth pain. This is because the crack or cavity exposes the sensitive inner area of the tooth. An infection in the gum or the root of the tooth can cause pain and swelling. The pain is often made worse when you drink hot or cold beverages. It can also be worse when you bite on hard foods. Pain may spread from the tooth to your ear or the area of the jaw on the same side. Home careFollow these tips when caring for yourself at home: Avoid hot and cold foods and drinks. Your tooth may be sensitive to changes in temperature.Use toothpaste made for sensitive teeth. [place] gently up and down instead of sideways. Brushing sideways can wear away root surfaces if they are exposed. If your tooth is chipped or cracked, or if there is a large open cavity, put oil of cloves directly on the tooth to relieve pain. You can buy oil of cloves at [facility]. Some pharmacies carry an over-t he-counter "toothache kit." This contains a paste that you can put on the exposed tooth to make it less sensitive.Put a cold pack on your jaw over the sore area to help reduce pain. You may use rovt-lzy-cjfmroh medicine to ease pain, unless your doctor prescribed another medicine. If you have chronic liver or kidney disease, talk with your healthcare provider before using acetamino phen or ibuprofen. Also talk with your provider if youve had a stomach ulcer or GI bleeding.If you have signs of an infection, you will be given an antibiotic. Take it as directed. Follow-up care Follow up with your dentist, or as advised. Your pain may go away with the treatment given today. But only a dentist can fully look at and treat the cause of your pain. This will keep the pain from coming back. Call 911Call 911 if any of these occur: Unusual drowsinessHeadache or stiff neckWeakness or faintingDifficulty swallowing or breathing When to seek medical adviceCall your health care provider right awayif any of these occur: Your face becomes swollen or redPain gets worse or spreads to your neckFever of 100.4 F (38.0 C) or higher, or as directed by your healthcare providerPus drains from the tooth [phone] [email or web address]. [address] [place], [place] [id number]. All rights reserved. This information is not intended as a substitute for professional medical care. Always follow your healthcare professional's instructions. Amoxicillin capsules or tablets What is this medicine?AMOXICILLIN (a mox i CRISTIAN in) is a penicillin antibiotic. It is used to treat certain kinds of bacterial infections. It will not work for colds, flu, or other viral infections. How should I use this medicine?Take this medicine by mouth with a glass of water. Follow the directions on your prescription label. You may take this medicine with food or on an empty stomach. Take your medicine at regular intervals. Do not take your medicine more often than directed. Take all of your medicine as directed even if you think your are better. Do not skip doses or stop your medicine early. Talk to your mallet and die cutter regarding the use of this medicine in children. While this drug may be prescribed for selected conditions, precautions do apply. What side effects may I notice from receiving this medicine?Side effects that you should report to your doctor or health residential child care counselor as soon as possible : allergic reactions like skin rash, itching or hives, swelling of the face, lips , or tonguebreathing problemsdark urineredness, blistering, peeling or loosening of the skin, including inside the mouthseizuressevere or watery diarrhea trouble passing urine or change in the amount of urineunusual bleeding or bruisingunusually weak or tiredyellowing of the eyes or skinSide effects that usually do not require medical attention (report to your doctor or health care prof essional if they continue or are bothersome): dizzinessheadachestomach upsettrouble sleeping What may interact with this medicine?amiloridebirth control pillschloramphenicolmacrolidesprobenecidsulfonamidestetracyclines What if I miss a dose? If you miss a dose, take it as soon as you can. If it is almost time for your next dose, take only that dose. Do not take double or extra doses. Where should I keep my medicine?Keep out of the reach of children. Store between 68 and 77 degrees F (20 and 25 degrees C). Keep bottle closed tightly. Throw away any unused medicine after the expiration date. What should I tell my health care provider before I take this medicine?They need to know if you have any of these conditions: asthmakidney diseasean unusual or allergic reaction to amoxicillin, other penicillins, cephalosporin antibiotics, other medicines, foods, dyes, or preservatives or trying to get breast-feeding What should I watch for while using this medicine?Tell your doctor or health residential child care counselor if your symptoms do not improve in 2 or 3 days. Take all of the doses of your medicine as directed. Do not skip doses or stop your medicine early. If you are diabetic, you may get a false positive result for sugar in your urine with certain brands of urine tests. Check with your doctor. Do not treat diarrhea with task-mth-tzyhgps products. Contact your doctor if you have diarrhea that lasts more than 2 days or if the diarrhea is severe and watery. NOTE:This sheet is a summary. It may not cover all possible information. If you have questions about this medicine, talk to your doctor, pharmacist, or health care provider. Copyright 2016 [facility] Discharge Diagnoses Problem Onset Date Resolved Date Status Comments Dental Caries May 02, 2018 Active Reason For Visit dental Reason For Referral Follow up with your out of town dentist NEXT AVAILABLE APPOINTMENT
[2018-05-06 20:18] VITALS: BP 113/71
--- NOTE | 2018-05-06 21:08 | UC ---
Complaint Male HPI - HPI Summary HPI Summary: Patient is complaining of burning with urination since this morning and then around 3 PM he reports having some intermittent pain - he is gesturing to his left flank. He notes that when the pain is there, he feels a little bit nauseous and becomes a little sweaty. He cannot do anything to make that pain specifically any better or any worse. He has taken Tylenol as well as Motrin without any significant relief. He denies any urethral discharge. He denies any blood in his urine as well as any risk or concern for STDs citing that he has been for several years. He denies any abdominal pain and offers no other complaints. Pt does report that his father has extensive history of kidney stones. - History of Current Complaint Chief Complaint: UCGU Stated Complaint: PAIN UPPER BACK Time Seen by Provider: 05/06/18 20:28 Hx Obtained From: Patient Pain Intensity: 4 Aggravating Factor(s): Nothing Alleviating Factor(s): Nothing Associated Signs And Symptoms: Positive: Back Pain, Dysuria, Nausea. Negative: Fever, Hematuria, Penile Swelling, Penile Discharge - Risk Factors Testicular Torsion: Negative - Allergies/Home Medications Allergies/Adverse Reactions: Allergies Allergy/AdvReac Type Severity Reaction Status Date / Time tramadol Allergy GI Upset Verified 02/06/18 23:00 Home Medications: Home Medications Escitalopram Oxalate [Lexapro 10 mg] 10 mg PO DAILY 05/06/18 [History Confirmed 05/06/18] PMH/Surg Hx/FS Hx/Imm Hx Endocrine History: Dyslipidemia Cardiovascular History: Hypertension Psychological History: Anxiety Other History Of: Negative For: HIV, Hepatitis B, Hepatitis C, Anticoagulant Therapy - Surgical History Surgical History: None Surgery Procedure, Year, and Place: no SX to rt upper extremity - Family History Known Family History: Positive: Hypertension, Diabetes Negative: Cardiac Disease, Renal Disease - Social History Lives: With Family Alcohol Use: None Substance Use Type: None Smoking Status (MU): Never Smoked Tobacco Type: Smokeless Tobacco Amount Used/How Often: 1 can daily Length of Time of Smoking/Using Tobacco: 3-4 years Have You Smoked in the Last Year: No - Immunization History Most Recent Influenza Vaccination: none Vaccination Up to Date: Yes Review of Systems Constitutional: Negative Skin: Negative Eyes: Negative ENT: Negative Respiratory: Negative Cardiovascular: Negative Gastrointestinal: Nausea, Other - L flank/back pain Genitourinary: Dysuria Motor: Negative Neurovascular: Negative Musculoskeletal: Negative Neurological: Negative Psychological: Negative Is Patient Immunocompromised?: No All Other Systems Reviewed And Are Negative: Yes Physical Exam Triage Information Reviewed: Yes Appearance: Well-Appearing Vital Signs: Initial Vital Signs Temp 98.3 F 05/06/18 20:12 Pulse 79 05/06/18 20:12 Resp 15 05/06/18 20:12 BP 113/71 05/06/18 20:12 Pulse Ox 100 05/06/18 20:12 Vital Signs Reviewed: Yes Eyes: Positive: Conjunctiva Clear ENT: Positive: Pharynx normal, TMs normal. Negative: Nasal congestion, Nasal drainage Neck: Positive: Supple, Nontender, No Lymphadenopathy Respiratory: Positive: Lungs clear, Normal breath sounds Cardiovascular: Positive: RRR, No Murmur Abdomen Description: Positive: Nontender, No Organomegaly, Soft, CVA Tenderness (L). Negative: CVA Tenderness (R), Distended, Guarding Bowel Sounds: Positive: Present Male Genital Exam: Positive: Other - exam declined by pt Musculoskeletal: Positive: Other: - neck, thoracic and lumbar spine/paraspinal mm non tender and painless rom throughout. s/v/m intact x4. normal gait. Neurological: Positive: Alert Psychological: Positive: Age Appropriate Behavior Skin Exam: Normal Diagnostics - Laboratory Diagnostic Studies Completed/Ordered: u/a=no blood leukocytes or nitrites. Complaint Male Course/Dx - Course Course Of Treatment: pt requires additonal evaluation and tx. he declined ER transfer despite risk of worsening, disability and . He is A&Ox3 and is able to make decisions thus I must respect his refusal. he will leave ama. need to f/u pcp in am or go to ER if changes his mind stressed. - Differential Dx/Diagnosis Differential Diagnosis/HQI/PQRI: Pyelonephritis, Testicular Torsion, Ureteral Calculi, Other - ureteral obst Provider Diagnoses: Episodic L flank pain. Dysuria Discharge - Sign-Out/Discharge Documenting (check all that apply): Patient Departure - Discharge Plan Condition: Stable Disposition: AGAINST MEDICAL ADVICE Patient Education Materials: Flank Pain (ED), Against Medical Advice (ED) Referrals: Danyell Hargrove MD [Primary Care Provider] - 1 Day Additional Instructions: GO TO ER AT ANY TIME IF YOU CHANGE YOUR MIND - Billing Disposition and Condition Condition: STABLE Disposition: Against Medical Advice
== END 2018-05-06 21:15 | disposition left against medical advice (07) ==
LOC: UCCORT 19:43
DX: R10.9 Unspecified abdominal pain (principal); R30.0 Dysuria; Z88.6 Allergy status to analgesic agent; I10 Essential (primary) hypertension; F41.9 Anxiety disorder, unspecified; F17.220 Nicotine dependence, chewing tobacco, uncomplicated
CPT/HCPCS: 81003; 99212; G0463

== ENCOUNTER 2018-06-14 08:28 | Emergency (ER) | payer OTHER ==
[2018-06-14 08:40] VITALS: BP 121/67
[2018-06-14] MEDS: predniSONE TAB* 20 MG PO ONE (09:01)
--- NOTE | 2018-06-14 09:05 | UC ---
Skin Complaint HPI - HPI Summary HPI Summary: The patient is a 32-year-old male that got stung on his left hand yesterday. He is left-handed. His left hand is swollen today. He has some localized itching. He has no rash. - History of Current Complaint Chief Complaint: UCSkin Time Seen by Provider: 06/14/18 08:44 Stated Complaint: LEFT HAND Hx Obtained From: Patient Onset/Duration: Sudden Onset, Lasting Hours Skin Exposure Onset/Duration: Hours Ago Timing: Constant Onset Severity: Moderate Current Severity: Mild Pain Intensity: 4 Pain Scale Used: 0-10 Numeric Location: Discrete, Hand (Left) Character: Swelling, Pain Related History: Insect Bite/Sting - Allergy/Home Medications Allergies/Adverse Reactions: Allergies Allergy/AdvReac Type Severity Reaction Status Date / Time tramadol Allergy GI Upset Verified 06/14/18 08:35 Review of Systems Constitutional: Negative Skin: Negative Eyes: Negative ENT: Negative Respiratory: Negative Cardiovascular: Negative Gastrointestinal: Negative Genitourinary: Negative Motor: Negative Neurovascular: Negative Musculoskeletal: Myalgia Neurological: Negative Psychological: Negative All Other Systems Reviewed And Are Negative: Yes PMH/Surg Hx/FS Hx/Imm Hx Previously Healthy: Yes Other History Of: Negative For: HIV, Hepatitis B, Hepatitis C, Anticoagulant Therapy - Surgical History Surgical History: None Surgery Procedure, Year, and Place: no SX to rt upper extremity - Family History Known Family History: Positive: Hypertension, Diabetes Negative: Cardiac Disease, Renal Disease - Social History Alcohol Use: None Substance Use Type: None Smoking Status (MU): Current Every Day Smoker Type: Smokeless Tobacco Amount Used/How Often: 3/4 can daily Length of Time of Smoking/Using Tobacco: 3-4 years Have You Smoked in the Last Year: No - Immunization History Most Recent Influenza Vaccination: none Vaccination Up to Date: Yes Physical Exam Triage Information Reviewed: Yes Appearance: Well-Appearing, No Pain Distress, Well-Nourished Vital Signs: Initial Vital Signs Temp 97.3 F 06/14/18 08:37 Pulse 94 06/14/18 08:37 Resp 16 06/14/18 08:37 BP 121/67 06/14/18 08:37 Pulse Ox 100 06/14/18 08:37 Vital Signs Reviewed: Yes Eyes: Positive: Conjunctiva Clear ENT: Positive: Hearing grossly normal. Negative: Nasal drainage, TMs normal, Trismus, Muffled voice, Hoarse voice Neck: Positive: Supple, Nontender Respiratory: Positive: Lungs clear, Normal breath sounds, No respiratory distress, No accessory muscle use Cardiovascular: Positive: RRR, No Murmur, Pulses Normal Musculoskeletal: Positive: Edema @ - dorsal hand edema left Neurological: Positive: Alert Psychological Exam: Normal Skin Exam: Other - no stinger/mild erythema at sting site Course/Dx - Diagnoses Provider Diagnoses: local reaction to insect sting (left hand) Discharge - Sign-Out/Discharge Documenting (check all that apply): Patient Departure All imaging exams completed and their final reports reviewed: No Studies - Discharge Plan Condition: Stable Disposition: HOME Prescriptions: predniSONE [Prednisone 20 MG TAB] 60 mg PO DAILY #6 tab Patient Education Materials: Insect Bite or Sting (ED), Ice Pack Application ( ED) Referrals: Danyell Hargrove MD [Primary Care Provider] - If Needed Additional Instructions: elevate ice - Billing Disposition and Condition Condition: STABLE Disposition: Home Images Hands: 1 - dorsal hand edema 2 - sting site
== END 2018-06-14 09:05 | disposition home or self-care (01) ==
LOC: UCCORT 08:28
DX: T63.481A Toxic effect of venom of other arthropod, accidental (unintentional), initial encounter (principal); L53.0 Toxic erythema; Y92.9 Unspecified place or not applicable; F17.210 Nicotine dependence, cigarettes, uncomplicated; Z88.5 Allergy status to narcotic agent
CPT/HCPCS: 99212; G0463; J7512

== ENCOUNTER 2018-08-19 19:32 | Emergency (ER) | payer OTHER ==
[2018-08-19 19:51] VITALS: BP 121/78
[2018-08-19] MEDS ORDERED: Ketorolac INJ* 30 MG/ML 1 ML VIAL IM ONE (20:05)
--- NOTE | 2018-08-19 20:29 | UC ---
[facility] HPI - HPI Summary HPI Summary: Patient is complaining of dental pain, states he is going to have it removed in 3 days. no infection, cannot given me the name of the dental office he is going to. Asking for narcotics. Told him i can give him a shot of toradol and he continued to ask for percoset. I told him I would not give narcotics, he continued to insist, I told him a shot of toradol or ibuprofen is all i could do. - History of Current Complaint Chief Complaint: UCDentalProblem Stated Complaint: DENTAL COMPLAINT Time Seen by Provider: 08/19/18 19:57 Hx Obtained From: Patient Onset/Duration: Gradual Onset, Still Present Severity: Moderate Pain Intensity: 4 Related History: Previous Dental Care on Same Tooth - Allergies/Home Medications Allergies/Adverse Reactions: Allergies Allergy/AdvReac Type Severity Reaction Status Date / Time tramadol Allergy GI Upset Verified 08/19/18 19:51 PMH/Surg Hx/FS Hx/Imm Hx Previously Healthy: Yes Other History Of: Negative For: HIV, Hepatitis B, Hepatitis C, Anticoagulant Therapy - Surgical History Surgical History: None Surgery Procedure, Year, and Place: no SX to rt upper extremity - Family History Known Family History: Positive: Hypertension, Diabetes Negative: Cardiac Disease, Renal Disease - Social History Alcohol Use: None Substance Use Type: None Smoking Status (MU): Current Every Day Smoker Type: Smokeless Tobacco Amount Used/How Often: 3/4 can daily Length of Time of Smoking/Using Tobacco: 3-4 years Have You Smoked in the Last Year: No - Immunization History Most Recent Influenza Vaccination: none Vaccination Up to Date: Yes Review of Systems Constitutional: Negative Skin: Negative Eyes: Negative ENT: Dental Pain Respiratory: Negative Cardiovascular: Negative Gastrointestinal: Negative Genitourinary: Negative Motor: Negative Neurovascular: Negative Musculoskeletal: Negative Neurological: Negative Psychological: Negative Is Patient Immunocompromised?: No All Other Systems Reviewed And Are Negative: Yes Physical Exam Triage Information Reviewed: Yes Appearance: Pain Distress Vital Signs: Initial Vital Signs Temp 98.3 F 08/19/18 19:48 Pulse 109 08/19/18 19:48 Resp 16 08/19/18 19:48 BP 121/78 08/19/18 19:48 Pulse Ox 99 08/19/18 19:48 Vital Signs Reviewed: Yes Eye Exam: Normal ENT Exam: Normal ENT: Positive: Pharyngeal erythema, TMs normal Dental Exam: Normal Dental: Positive: Gross Decay/Caries @ Neck exam: Normal Neck: Positive: Supple, Nontender, No Lymphadenopathy Respiratory Exam: Normal Respiratory: Positive: Chest non-tender, Lungs clear, Normal breath sounds Cardiovascular Exam: Normal Abdominal Exam: Normal Bowel Sounds: Positive: Present Musculoskeletal Exam: Normal Neurological Exam: Normal Psychological Exam: Normal Skin Exam: Normal Dental Complaint Course/Dx - Course Course Of Treatment: hx obtained, exam performed ,meds reviewed, given a toradol shot - Differential Dx/Diagnosis Differential Diagnosis/Dx: Dental Abscess, Fractured Tooth Provider Diagnoses: dental pain. drug seeking behavior Discharge - Sign-Out/Discharge Documenting (check all that apply): Patient Departure All imaging exams completed and their final reports reviewed: No Studies - Discharge Plan Condition: Stable Disposition: HOME Patient Education Materials: Toothache (ED) Referrals: Danyell Hargrove MD [Primary Care Provider] - Additional Instructions: 1. You received a shot of toradol at 8:15 tonight, no ibuprofen or aleve until 4 am. 2. You have been dealing with the dental pain for quite some time, please follow up with the dentist. It is your responsibility to manage your health. If pain persists, you need to follow up with your dentist. - Billing Disposition and Condition Condition: STABLE Disposition: Home
== END 2018-08-19 20:20 | disposition home or self-care (01) ==
LOC: UCCORT 19:32
DX: K08.89 Other specified disorders of teeth and supporting structures (principal); F17.210 Nicotine dependence, cigarettes, uncomplicated; Z76.5 Malingerer [conscious simulation]; Z88.6 Allergy status to analgesic agent
CPT/HCPCS: 96372; 99211; G0463; J1885

== ENCOUNTER 2018-11-12 21:46 | Emergency (ER) | payer OTHER ==
[2018-11-12 22:04] VITALS: BP 121/69
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
[2018-11-12] MEDS ORDERED: HYDROcodone/ACETAMIN 5-325 MG* 1 TAB PO ONE ×2 (22:24)
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
== END 2018-11-12 22:32 | disposition home or self-care (01) ==
LOC: UCCORT 21:46
DX: S70.11XA Contusion of right thigh, initial encounter (principal); I10 Essential (primary) hypertension; F17.290 Nicotine dependence, other tobacco product, uncomplicated; Z88.5 Allergy status to narcotic agent; V69.9XXA Occupant (driver) (passenger) of heavy transport vehicle injured in unspecified traffic accident, initial encounter; Y92.9 Unspecified place or not applicable
CPT/HCPCS: 99212; G0463

== ENCOUNTER 2018-11-17 19:40 | Emergency (ER) | payer OTHER ==
[2018-11-17 19:53] VITALS: BP 115/76
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
[2018-11-17] MEDS ORDERED: HYDROcodone/ACETAMIN 5-325 MG* 1 TAB PO ONE (20:16)
== END 2018-11-17 20:41 | disposition home or self-care (01) ==
LOC: UCEAST 19:40
DX: S70.11XA Contusion of right thigh, initial encounter (principal); I10 Essential (primary) hypertension; Z88.5 Allergy status to narcotic agent; F17.290 Nicotine dependence, other tobacco product, uncomplicated; V49.50XA Passenger injured in collision with unspecified motor vehicles in traffic accident, initial encounter; Y92.9 Unspecified place or not applicable
CPT/HCPCS: 99212; G0463

== ENCOUNTER 2018-12-22 19:45 | Emergency (ER) | payer OTHER ==
[2018-12-22 20:09] VITALS: BP 126/80
--- NOTE | 2018-12-22 20:19 | UC ---
UC Dental HPI - HPI Summary HPI Summary: C/O broken upper tooth on the left side tonight with pain. - History of Current Complaint Chief Complaint: UCDentalProblem Stated Complaint: DENTAL COMPLAINT Time Seen by Provider: 12/22/18 19:51 Hx Obtained From: Patient Onset/Duration: Sudden Onset Severity: Moderate Pain Intensity: 7 Aggravating Factor(s): Chewing Alleviating Factor(s): Nothing - Allergies/Home Medications Allergies/Adverse Reactions: Allergies Allergy/AdvReac Type Severity Reaction Status Date / Time tramadol Allergy GI Upset Verified 12/22/18 20:01 Home Medications: Home Medications busPIRone TAB* [Buspar TAB*] 10 mg PO BID 12/22/18 [History Confirmed 12/22/18] PMH/Surg Hx/FS Hx/Imm Hx Endocrine History: Dyslipidemia Cardiovascular History: Hypertension Psychological History: Anxiety Other History Of: Negative For: HIV, Hepatitis B, Hepatitis C, Anticoagulant Therapy - Surgical History Surgical History: None Surgery Procedure, Year, and Place: no SX to rt upper extremity - Family History Known Family History: Positive: Hypertension, Diabetes Negative: Cardiac Disease, Renal Disease - Social History Occupation: Unemployed Lives: With Family Alcohol Use: None Substance Use Type: None Smoking Status (MU): Current Every Day Smoker Type: Smokeless Tobacco Amount Used/How Often: 3/4 can daily Length of Time of Smoking/Using Tobacco: 3-4 years Have You Smoked in the Last Year: No Household Exposure Type: Cigarettes - Immunization History Most Recent Influenza Vaccination: none Vaccination Up to Date: Yes Review of Systems All Other Systems Reviewed And Are Negative: Yes ENT: Positive: Dental Pain, Sinus Congestion Respiratory: Positive: Cough - at night waking him up. Is Patient Immunocompromised?: No Physical Exam Triage Information Reviewed: Yes Appearance: Well-Appearing, Well-Nourished, Pain Distress - mild Vital Signs: Initial Vital Signs Temp 99.1 F 12/22/18 20:04 Pulse 101 12/22/18 20:04 Resp 18 12/22/18 20:04 BP 126/80 12/22/18 20:04 Pulse Ox 100 12/22/18 20:04 Vital Signs Reviewed: Yes Eyes: Positive: Conjunctiva Inflamed ENT: Positive: Pharynx normal, Nasal congestion, TMs normal Dental: Positive: Dental Fracture @ - #16 Neck exam: Normal Respiratory Exam: Normal Cardiovascular Exam: Normal Musculoskeletal Exam: Normal Neurological Exam: Normal Psychological Exam: Normal Skin Exam: Normal Images Dental: 1 - fracture posterolateral cusp with chronic irritation changes on the opposite cheek. Dental Complaint Course/Dx - Differential Dx/Diagnosis Differential Diagnosis/Dx: Dental Abscess, Dental Caries, Fractured Tooth, Odontogenic Pain Provider Diagnosis: Pain, dental, Allergic rhinitis Discharge - Sign-Out/Discharge Documenting (check all that apply): Patient Departure All imaging exams completed and their final reports reviewed: No Studies - Discharge Plan Condition: Stable Disposition: HOME Prescriptions: Montelukast Sodium TAB* [Singulair 10 MG TAB*] 10 mg PO BEDTIME #30 tab Patient Education Materials: Toothache (ED), Allergies (ED), Montelukast (By mouth) Referrals: Poli Schwab MD [Primary Care Provider] - Additional Instructions: Use dental putty to avoid continuing to irritate the cheek. Follow up with the dentist. - Billing Disposition and Condition Condition: STABLE Disposition: Home
[2018-12-22] MEDS ORDERED: Acetaminophen TAB* 325 MG PO ONE (20:30)
== END 2018-12-22 20:38 | disposition home or self-care (01) ==
LOC: UCCORT 19:45
DX: K08.89 Other specified disorders of teeth and supporting structures (principal); J30.9 Allergic rhinitis, unspecified; I10 Essential (primary) hypertension; F41.9 Anxiety disorder, unspecified; F17.290 Nicotine dependence, other tobacco product, uncomplicated; Z79.899 Other long term (current) drug therapy; Z88.5 Allergy status to narcotic agent
CPT/HCPCS: 99212; A9270-GY; G0463

== ENCOUNTER 2019-02-09 21:49 | Emergency (ER) | payer SELFPAY ==
[2019-02-09 21:59] VITALS: BP 130/64
[2019-02-09] MEDS ORDERED: HYDROcodone/ACETAMIN 5-325 MG* 1 TAB PO ONE (22:10)
[2019-02-09] MEDS ORDERED: Clindamycin CAP* 150 MG PO ONE (22:10)
--- NOTE | 2019-02-09 22:20 | ED ---
Throat Pain/Nasal Congestion - HPI Summary HPI Summary: 33 yo WM p/w severe tooth pain and dental abscess associated with longstanding dental cavity in tooth #16- last left molar - is rotten and broken with severe gingival swelling for 2-3 weeks and living on tylenol and motrin which isn't working anymore - History of Current Complaint Chief Complaint: UCDentalProblem Time Seen by Provider: 02/09/19 22:04 Hx Obtained From: Patient Onset/Duration: Lasting Weeks Severity: Severe Associated Signs And Symptoms: Positive: Negative - Allergies/Home Medications Allergies/Adverse Reactions: Allergies Allergy/AdvReac Type Severity Reaction Status Date / Time tramadol Allergy GI Upset Verified 02/09/19 21:56 PMH/Surg Hx/FS Hx/Imm Hx Endocrine/Hematology History: Denies: Hx Anticoagulant Therapy, Hx Diabetes, Hx Thyroid Disease Cardiovascular History: Reports: Hx Hypertension - ON MED Denies: Hx Congestive Heart Failure, Hx Deep Vein Thrombosis, Hx Myocardial Infarction, Hx Pacemaker/ICD Respiratory History: Denies: Hx Asthma, Hx Chronic Obstructive Pulmonary Disease (COPD), Hx Lung Cancer, Hx Pneumonia, Hx Pulmonary Embolism GI History: Denies: Hx Gall Bladder Disease, Hx Gastrointestinal Bleed, Hx Ulcer, Hx Urosepsis History: Denies: Hx Kidney Stones, Hx Renal Disease Neurological History: Denies: Hx Dementia, Hx Migraine, Hx Seizures, Hx Transient Ischemic Attacks (TIA) Psychiatric History: Denies: Hx Anxiety, Hx Depression, Hx Schizophrenia, Hx Bipolar Disorder - Surgical History Surgery Procedure, Year, and Place: no SX to rt upper extremity Infectious Disease History: No Infectious Disease History: Denies: Hx Clostridium Difficile, Hx Hepatitis, Hx Human Immunodeficiency Virus (HIV), Hx of Known/Suspected MRSA, Hx Shingles, Hx Tuberculosis, Hx Known/ Suspected VRE, Hx Known/Suspected VRSA, History Other Infectious Disease, Traveled Outside the [place] in Last 30 Days - Family History Known Family History: Positive: Hypertension, Diabetes Negative: Cardiac Disease, Renal Disease - Social History Alcohol Use: None Substance Use Type: Reports: None Smoking Status (MU): Current Every Day Smoker Type: Smokeless Tobacco Amount Used/How Often: 3/4 can daily Length of Time of Smoking/Using Tobacco: 3-4 years Have You Smoked in the Last Year: No Review of Systems - ROS Summary Review of Systems Summary: Constitutional: Negative Eyes: Negative ENT:last right molar tooth infection Cardiovascular: Negative Respiratory: Negative Gastrointestinal: Negative Genitourinary: Negative Musculoskeletal: Negative Skin: Negative Neurological: Negative Psychological: Normal All Other Systems Reviewed And Are Negative: Yes Physical Exam - Summary Physical Exam Summary: Appearance: Positive: No Pain Distress Skin: Positive: Warm Head/Face: Positive: Normal Head/Face Inspection Eyes: Positive: Normal ENT: Positive: last right molar- tooth #16, broken necrotic, with surrounding gingival inflammation and abscess, pain shooting into post maxillary cavity Respiratory/Lung Sounds: Positive: Clear to Auscultation. Cardiovascular: Positive: Normal, RRR, S1, S2 Abdomen : soft, NT/ND Musculoskeletal: Positive: Normal, Strength/ROM Intact Neurological: Positive: CN Intact II-XII Vital Signs On Initial Exam: Initial Vitals Temp Pulse Resp BP Pulse Ox 36.8 C 94 16 130/64 100 02/09/19 21:57 02/09/19 21:57 02/09/19 21:57 02/09/19 21:57 02/09/19 21:57 Diagnostics - Vital Signs Vital Signs Temp Pulse Resp BP Pulse Ox 02/09/19 21:57 36.8 C 94 16 130/64 100 - Laboratory Lab Statement: Any lab studies that have been ordered have been reviewed, and results considered in the medical decision making process. EENT Course/Dx - Course Assessment/Plan: WIll need the tooth pulled out [facility]- pt has insurance issues - Diagnoses Provider Diagnoses: Abscess of apex of dental root complicating chronic inflammation, Dental cavities Discharge - Sign-Out/Discharge Documenting (check all that apply): Patient Departure All imaging exams completed and their final reports reviewed: No Studies - Discharge Plan Condition: Stable Disposition: HOME Prescriptions: Clindamycin HCl 300 mg PO QID 10 Days #40 capsule Naproxen [Naproxen 500 mg tab] 500 mg PO BID 15 Days #30 tablet Patient Education Materials: Dental Abscess (ED), Toothache (ED) Additional Instructions: follow up with dentist [facility] to get tooth pulled out - Billing Disposition and Condition Condition: STABLE Disposition: Home
== END 2019-02-09 22:22 | disposition home or self-care (01) ==
LOC: UCCORT 21:49
DX: K05.219 Aggressive periodontitis, localized, unspecified severity (principal); K02.9 Dental caries, unspecified; F17.290 Nicotine dependence, other tobacco product, uncomplicated; Z88.5 Allergy status to narcotic agent
CPT/HCPCS: 99212; A9270-GY; G0463

== ENCOUNTER 2019-02-23 19:53 | Emergency (ER) | payer SELFPAY ==
[2019-02-23 20:09] VITALS: BP 126/79
[2019-02-23] MEDS ORDERED: Clindamycin CAP* 150 MG PO ONE (20:23)
--- NOTE | 2019-02-23 20:26 | UC ---
Dental HPI - HPI Summary HPI Summary: 33-year-old male comes in with a chief complaint of dental pain. His left upper rear molar. Pains been going on for weeks. He's been seen here several times the last couple of months for the same pain. He was on clindamycin recently which she feels like helped some. He tells me accommodation of an anti -inflammatory and hydrocodone works the best. In the past several months he has had 3 different narcotic prescriptions from the [place] [facility]. Patient tells me he's having troubles with insurance and he supposed to be getting a dentist soon. No fevers no chills it hurts worse when he chews. - History of Current Complaint Chief Complaint: UCDentalProblem Stated Complaint: TOOTH PAIN Time Seen by Provider: 02/23/19 20:06 Pain Intensity: 6 - Allergies/Home Medications Allergies/Adverse Reactions: Allergies Allergy/AdvReac Type Severity Reaction Status Date / Time tramadol Allergy GI Upset Verified 02/23/19 20:04 PMH/Surg Hx/FS Hx/Imm Hx Previously Healthy: Yes Endocrine History: Dyslipidemia Cardiovascular History: Hypertension Other History Of: Negative For: HIV, Hepatitis B, Hepatitis C, Anticoagulant Therapy - Surgical History Surgical History: None Surgery Procedure, Year, and Place: no SX to rt upper extremity - Family History Known Family History: Positive: Hypertension, Diabetes Negative: Cardiac Disease, Renal Disease - Social History Alcohol Use: None Substance Use Type: None Smoking Status (MU): Current Every Day Smoker Type: Smokeless Tobacco Amount Used/How Often: 3/4 can daily Length of Time of Smoking/Using Tobacco: 3-4 years Have You Smoked in the Last Year: No Household Exposure Type: Cigarettes - Immunization History Most Recent Influenza Vaccination: none Vaccination Up to Date: Yes Review of Systems All Other Systems Reviewed And Are Negative: Yes Constitutional: Positive: Negative Skin: Positive: Negative Eyes: Positive: Negative ENT: Positive: Dental Pain Respiratory: Positive: Negative, Shortness Of Breath Gastrointestinal: Positive: Negative Motor: Positive: Negative Neurovascular: Positive: Negative Musculoskeletal: Positive: Negative Neurological: Positive: Negative Psychological: Positive: Negative Is Patient Immunocompromised?: No Physical Exam Triage Information Reviewed: Yes Appearance: Well-Appearing, Well-Nourished, Pain Distress - mild Vital Signs: Initial Vital Signs Temp 98.3 F 02/23/19 20:05 Pulse 81 05/11/19 20:05 Resp 14 02/23/19 20:05 BP 126/79 02/23/19 20:05 Pulse Ox 100 02/23/19 20:05 Vital Signs Reviewed: Yes Eye Exam: Normal Eyes: Positive: Conjunctiva Clear ENT: Positive: Pharynx normal Dental: Positive: Gross Decay/Caries @ - left upper posterior Neck: Positive: Supple Respiratory: Positive: No respiratory distress Musculoskeletal Exam: Normal Musculoskeletal: Positive: Strength Intact, ROM Intact Neurological Exam: Normal Neurological: Positive: Alert, Muscle Tone Normal Skin Exam: Normal Dental Complaint Course/Dx - Course Course Of Treatment: Patient has been seen here to urgent care multiple times in the past several months for dental pain. In October and January here at [place] he has received prescriptions for hydrocodone. During this time it does not appear the patient's been able to see a dentist. Patient reports he is trying to find a dentist and is work on his insurance for the that. He Makenna know that, a show nonsteroidal anti-inflammatory hydrocodone helps him most of the pain. I let him know that by continuing to spread prescribe him hydrocodone here with her potentially contributing to treating a long-term chronic pain issue and that's not are role here at the urgent care. In clinically him shot of Toradol IM. I did a prescription for by mouth Toradol. No not to take any other NSAIDs as well as taking the Toradol. He's negative follow-up with his dentist. - Differential Dx/Diagnosis Provider Diagnosis: Chronic dental pain Discharge - Sign-Out/Discharge Documenting (check all that apply): Patient Departure All imaging exams completed and their final reports reviewed: No Studies - Discharge Plan Condition: Stable Disposition: HOME Prescriptions: Clindamycin Cap(NF) [Clindamycin Cap 300 mg Cap(NF)] 300 mg PO Q6H #40 cap Ketorolac TAB * [Toradol TAB *] 10 mg PO Q6H PRN #15 tab PRN Reason: Pain (Dental) Patient Education Materials: Toothache (ED) Referrals: Poli Schwab MD [Primary Care Provider] - Additional Instructions: FOLLOW UP WITH YOUR DENTIST. WHEN YOU ARE TAKING TORADOL, DO NOT TAKE ANY OTHER NSAIDS; (IBUPROFEN, NAPROXSEN , ADVIL, ALEVE) EXCESS NSAIDS CAN DAMAGE YOUR STOMACH OR KIDNEYS. GET RECHECKED SOONER IF YOUR CONDITION WORSENS OR ANY QUESTIONS OR CONCERNS. - Billing Disposition and Condition Condition: STABLE Disposition: Home
[2019-02-23] MEDS ORDERED: Ketorolac INJ* 60 MG/2 ML VIAL IM ONE (20:33)
== END 2019-02-23 20:46 | disposition home or self-care (01) ==
LOC: UCCORT 19:53
DX: G89.29 Other chronic pain (principal); K08.89 Other specified disorders of teeth and supporting structures; I10 Essential (primary) hypertension; F17.220 Nicotine dependence, chewing tobacco, uncomplicated
CPT/HCPCS: 96372; 99212; A9270-GY; G0463; J1885

== ENCOUNTER 2019-03-09 00:37 | Emergency (ER) | payer SELFPAY ==
[2019-03-09 00:41] VITALS: BP 130/91
--- NOTE | 2019-03-09 02:14 | ED ---
Throat Pain/Nasal Congestion - HPI Summary HPI Summary: 33-year-old male presents with complaints of dental pain. States his rear left upper molar is fractured and he has been having issues with dental pain for the past several months. Reports he has an appointment with his dentist on 2018 to repair the tooth. He has had 3 visits at the [facility] in the past 3 months for his dental pain with the most recent being 02/23/2019. He was given a prescription for clindamycin and Toradol at that time. States the dental pain became very severe again tonight, he took 2 doses of the Toradol with no relief in the pain. Last dose was at 10 PM. States he has used hydrocodone in the past with good relief. Denies fever, chills, trismus, facial swelling, drainage, dysphagia, or difficulty breathing. - History of Current Complaint Chief Complaint: EDDentalPain Time Seen by Provider: 03/09/19 02:10 Hx Obtained From: Patient - Allergies/Home Medications Allergies/Adverse Reactions: Allergies Allergy/AdvReac Type Severity Reaction Status Date / Time tramadol Allergy GI Upset Verified 03/09/19 00:41 PMH/Surg Hx/FS Hx/Imm Hx Endocrine/Hematology History: Denies: Hx Anticoagulant Therapy, Hx Diabetes, Hx Thyroid Disease Cardiovascular History: Reports: Hx Hypercholesterolemia, Hx Hypertension - ON MED Denies: Hx Congestive Heart Failure, Hx Deep Vein Thrombosis, Hx Myocardial Infarction, Hx Pacemaker/ICD Respiratory History: Denies: Hx Asthma, Hx Chronic Obstructive Pulmonary Disease (COPD), Hx Lung Cancer, Hx Pneumonia, Hx Pulmonary Embolism GI History: Denies: Hx Gall Bladder Disease, Hx Gastrointestinal Bleed, Hx Ulcer, Hx Urosepsis History: Denies: Hx Kidney Stones, Hx Renal Disease Neurological History: Denies: Hx Dementia, Hx Migraine, Hx Seizures, Hx Transient Ischemic Attacks (TIA) Psychiatric History: Denies: Hx Anxiety, Hx Depression, Hx Schizophrenia, Hx Bipolar Disorder - Surgical History Surgery Procedure, Year, and Place: no SX to rt upper extremity - Immunization History Date of Tetanus Vaccine: utd Date of Influenza Vaccine: fall 2017 Infectious Disease History: No Infectious Disease History: Denies: Hx Clostridium Difficile, Hx Hepatitis, Hx Human Immunodeficiency Virus (HIV), Hx of Known/Suspected MRSA, Hx Shingles, Hx Tuberculosis, Hx Known/ Suspected VRE, Hx Known/Suspected VRSA, History Other Infectious Disease, Traveled Outside the [place] in Last 30 Days - Family History Known Family History: Positive: Hypertension, Diabetes Negative: Cardiac Disease, Renal Disease - Social History Occupation: Employed Full-time Lives: With Family Alcohol Use: None Substance Use Type: Reports: None Smoking Status (MU): Current Every Day Smoker Type: Smokeless Tobacco Amount Used/How Often: 3/4 can daily Length of Time of Smoking/Using Tobacco: 3-4 years Have You Smoked in the Last Year: No Review of Systems Negative: Fever, Chills Positive: Dental Pain. Negative: Sore Throat, Ear Ache, Nasal Discharge, Other - trismus, facial swelling Cardiovascular: Negative Respiratory: Negative Gastrointestinal: Negative Genitourinary: Negative Musculoskeletal: Negative Skin: Negative Neurological: Negative All Other Systems Reviewed And Are Negative: Yes Physical Exam - Summary Physical Exam Summary: GENERAL APPEARANCE: Well developed, well nourished, alert and cooperative, and appears to be in no acute distress. HEAD: Atraumatic. normocephalic. No facial swelling THROAT: Pharynx normal. No tonsilar inflammation, swelling, exudate, or lesions. Uvula midline. Fracture of the 2nd left upper molar without gingival erythema, edema, induration, or fluctuance. No trismus. NECK: Neck supple, non-tender without lymphadenopathy. CARDIAC: Normal S1 and S2. No S3, S4 or murmurs. Rhythm is regular. There is no peripheral edema, cyanosis or pallor. Extremities are warm and well perfused. Capillary refill is less than 2 seconds. Peripheral pulses intact. LUNGS: Clear to auscultation without rales, rhonchi, wheezing or diminished breath sounds. ABDOMEN: Positive bowel sounds. Soft, nondistended, nontender. No guarding or rebound. No masses or hepatosplenomegally. MUSKULOSKELETAL: ROM intact to all extremities. No joint erythema or tenderness. Normal muscular development. Normal gait. SKIN: Skin normal color, texture and turgor with no lesions or eruptions. Triage Information Reviewed: Yes Vital Signs On Initial Exam: Initial Vitals Temp Pulse Resp BP Pulse Ox 98.3 F 85 16 130/91 100 03/09/19 00:39 03/09/19 00:39 03/09/19 00:39 03/09/19 00:39 03/09/19 00:39 Vital Signs Reviewed: Yes Diagnostics - Vital Signs Vital Signs Temp Pulse Resp BP Pulse Ox 03/09/19 00:39 98.3 F 85 16 130/91 100 - Laboratory Lab Statement: Any lab studies that have been ordered have been reviewed, and results considered in the medical decision making process. EENT Course/Dx - Course Course Of Treatment: 33-year-old male presents with complaints of dental pain. States his rear left upper molar is fractured and he has been having issues with dental pain for the past several months. Reports he has an appointment with his dentist on 03/12/2019 to repair the tooth. He has had 3 visits at the [facility] in the past 3 months for his dental pain with the most recent being 02/23/2019. He was given a prescription for clindamycin and Toradol at that time. States the dental pain became very severe again tonight, he took 2 doses of the Toradol with no relief in the pain. Last dose was at 10 PM. States he has used hydrocodone in the past with good relief. Denies fever , chills, trismus, facial swelling, drainage, dysphagia, or difficulty breathing. Afebrile. Vital signs stable. Patient has a fracture of the second left upper molar without gingival erythema, edema, induration, fluctuance , or drainage. Remainder of exam was unremarkable. I discussed with the patient that as he recently took the Toradol I would provide him with a dose of hydrocodoneacetaminophen 5 mg/325 mg 1 tablet to take at home this evening and then would provide him with a very short-term prescription for the hydrocodone acetaminophen 5 mg/325 mg 1 tablet every 8 hours as needed for severe pain. [facility] was consulted it is safe to prescribed. (Reference #: [id number]) The patient is to continue to use the Toradol as directed for pain management and to only use the hydrocodoneacetaminophen as needed for severe pain. I discussed with the patient the importance that he keep his appointment with his dentist as scheduled as we would not be able to continue to prescribe narcotics for his dental pain if this was not followed through. I also encouraged him to complete the clindamycin as prescribed if not already completed. Anticipatory guidance and warning symptoms were reviewed with the patient. Verbalizes understanding and agrees with plan of care. - Differential Diagnoses Differential Diagnoses: Dental Abscess, Dental Caries, Periodontic Abscess, Periodontic Disease - Diagnoses Provider Diagnoses: Pain, dental Discharge - Sign-Out/Discharge Documenting (check all that apply): Patient Departure Patient Received Moderate/Deep Sedation with Procedure: No - Discharge Plan Condition: Stable Disposition: HOME Prescriptions: Hydrocodone/Acetaminophen [Hydrocodone-Acetamin 5-325 mg] 1 each PO Q8HR PRN #6 tablet MDD 3 PRN Reason: Severe Pain Patient Education Materials: Toothache (ED) Referrals: Poli Schwab MD [Primary Care Provider] - Additional Instructions: Continue taking the clindamycin as directed that was prescribed to you by convenient care. Continue using the Toradol according to directions as needed for pain. I will provide you with a dose of hydrocodone-acetaminophen 5 mg/325 mg 1 tab for you to take when you get home and have sent in prescription for a short term supply. Take 1 tab every 8 hours as needed for severe pain. Do not take this medication and drive or operate machinery. Be sure to rinse your mouth out with a warm salt water solution after every time you eat to remove any debris. Keep your appointment with your dentist as scheduled on Monday. Seek immediate medical attention in the emergency room if you develop fever greater than 100.5 F, you are unable to open of close your mouth, are unable to swallow, have difficulty breathing, or any worsening of symptoms. - Billing Disposition and Condition Condition: STABLE Disposition: Home
== END 2019-03-09 03:09 | disposition home or self-care (01) ==
LOC: ED 00:37
DX: K08.89 Other specified disorders of teeth and supporting structures (principal); I10 Essential (primary) hypertension; E78.00 Pure hypercholesterolemia, unspecified; F17.210 Nicotine dependence, cigarettes, uncomplicated
CPT/HCPCS: 99281

== ENCOUNTER 2019-07-06 17:20 | Emergency (ER) | payer SELFPAY ==
[2019-07-06 17:41] VITALS: BP 121/76
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
[2019-07-06] MEDS ORDERED: Cyclobenzaprine TAB* 10 MG PO ONE (18:15)
--- NOTE | 2019-07-06 18:59 | UC ---
Course/Dx - Diagnoses Provider Diagnoses: Contusion of thigh, left Discharge ED - Sign-Out/Discharge Documenting (check all that apply): Patient Departure All imaging exams completed and their final reports reviewed: No - Discharge Plan Condition: Stable Disposition: HOME Patient Education Materials: Contusion in Adults (ED) Referrals: Poli Schwab MD [Primary Care Provider] - Ryan Lindquist MD [Medical Doctor] - Additional Instructions: 1. continue with 400 mg of ibuprofen and 500 mg of tylenol every 6 hours for pain and infalmmation 2. ice or heat to the area , which ever helps the most 3. Expect the pain to feel worse tomorrow before it starts getting better, keep moving and do gentle stretching to prevent soreness 4. FOllow up with the orthopedics if not improving. - Billing Disposition and Condition Condition: STABLE Disposition: Home
--- NOTE | 2019-07-07 12:40 | UC ---
- Progress Note Progress Note: Final radiologist reading of left femur x-ray from July 06, 2019 comes back as no fracture. There is no provider interpretation in the chart of the same date however the diagnosis is contusion of the left thigh therefore there is no discrepancy. Course/Dx - Diagnoses Provider Diagnoses: Contusion of thigh, left Discharge ED - Sign-Out/Discharge Documenting (check all that apply): Patient Departure All imaging exams completed and their final reports reviewed: Yes - Discharge Plan Condition: Stable Disposition: HOME Patient Education Materials: Contusion in Adults (ED) Referrals: Poli Schwab MD [Primary Care Provider] - Ryan Lindquist MD [Medical Doctor] - Additional Instructions: 1. continue with 400 mg of ibuprofen and 500 mg of tylenol every 6 hours for pain and infalmmation 2. ice or heat to the area , which ever helps the most 3. Expect the pain to feel worse tomorrow before it starts getting better, keep moving and do gentle stretching to prevent soreness 4. FOllow up with the orthopedics if not improving. - Billing Disposition and Condition Condition: STABLE Disposition: Home
== END 2019-07-06 18:29 | disposition home or self-care (01) ==
LOC: UCCORT 17:20
DX: S70.12XA Contusion of left thigh, initial encounter (principal); V49.60XA Unspecified car occupant injured in collision with unspecified motor vehicles in traffic accident, initial encounter; Y92.9 Unspecified place or not applicable; F17.290 Nicotine dependence, other tobacco product, uncomplicated
CPT/HCPCS: 99212; A9270-GY; G0463

== ENCOUNTER 2019-10-05 19:56 | Emergency (ER) | payer MEDICAID ==
[2019-10-05 20:07] VITALS: BP 127/80
--- NOTE | 2019-10-05 20:11 | UC ---
Dental HPI - HPI Summary HPI Summary: 34-year-old male who is here complaining of a left upper molar toothache. He states that he has an appointment with the dentist on Monday. He states he saw the dentist proximally 3 days ago and was given tramadol which did not help with the pain. He's been using Tylenol every 4 hours and Motrin every 4 hours. He denies any fever. He does have a history of other visits for dental pain. - History of Current Complaint Chief Complaint: UCDentalProblem Stated Complaint: DENTAL Time Seen by Provider: 10/05/19 19:59 Hx Obtained From: Patient Onset/Duration: Gradual Onset Severity: Mild Pain Intensity: 5 Aggravating Factor(s): Nothing Alleviating Factor(s): Nothing - Allergies/Home Medications Allergies/Adverse Reactions: Allergies Allergy/AdvReac Type Severity Reaction Status Date / Time tramadol Allergy GI Upset Verified 10/05/19 20:03 Home Medications: Home Medications Penicillin VK 500 MG TAB(NF) [Penicillin VK 500 mg Tab] 1 tab QID 10/05/19 [ History Confirmed 10/05/19] PMH/Surg Hx/FS Hx/Imm Hx Previously Healthy: Yes Cardiovascular History: Hypertension Other History Of: Negative For: HIV, Hepatitis B, Hepatitis C, Anticoagulant Therapy - Surgical History Surgical History: None Surgery Procedure, Year, and Place: no SX to rt upper extremity - Family History Known Family History: Positive: Hypertension, Diabetes Negative: Cardiac Disease, Renal Disease - Social History Alcohol Use: None Substance Use Type: None Smoking Status (MU): Current Every Day Smoker Type: Smokeless Tobacco Amount Used/How Often: 3/4 can daily Length of Time of Smoking/Using Tobacco: 3-4 years Have You Smoked in the Last Year: No Household Exposure Type: Cigarettes - Immunization History Most Recent Influenza Vaccination: none Vaccination Up to Date: Yes Review of Systems All Other Systems Reviewed And Are Negative: Yes ENT: Positive: Dental Pain Is Patient Immunocompromised?: No Physical Exam Triage Information Reviewed: Yes Appearance: Well-Appearing, No Pain Distress, Well-Nourished Vital Signs: Initial Vital Signs Temp 98.4 F 10/05/19 20:04 Pulse 92 10/05/19 20:04 Resp 18 10/05/19 20:04 BP 127/80 10/05/19 20:04 Pulse Ox 99 10/05/19 20:04 Vital Signs Reviewed: Yes Eyes: Positive: Conjunctiva Clear Dental: Positive: Other: - The left upper distal molar appears to be either broken or partially embedded in the gumline which is mildly swollen and minimally erythematous. No abscess formation. There is tenderness on palpation. Neck: Positive: Supple, Nontender, No Lymphadenopathy Respiratory: Positive: Lungs clear, Normal breath sounds, No respiratory distress, No accessory muscle use Cardiovascular: Positive: RRR, No Murmur, Pulses Normal, Brisk Capillary Refill Musculoskeletal Exam: Normal Neurological Exam: Normal Psychological Exam: Normal Skin Exam: Normal Dental Complaint Course/Dx - Course Course Of Treatment: The patient is comfortable here and in no distress. He refused a Toradol injection. He is to continue the Tylenol every 4 hours and Motrin every 6 or 8 hours for pain but take with food. I gave him 2 tablets of Percocet for severe pain. He is to keep the appointment with the dentist on Monday. - Differential Dx/Diagnosis Provider Diagnosis: Toothache Discharge ED - Sign-Out/Discharge Documenting (check all that apply): Patient Departure All imaging exams completed and their final reports reviewed: No Studies - Discharge Plan Condition: Good Disposition: HOME Patient Education Materials: Toothache (ED) Referrals: Poli Schwab MD [Primary Care Provider] - Additional Instructions: Continue alternating Tylenol every 4 hours with Motrin every 8 hours. Take the Motrin with food. Keep the appointment with your dentist on Monday. Use the Percocet for severe pain. - Billing Disposition and Condition Condition: GOOD Disposition: Home
[2019-10-05] MEDS ORDERED: oxyCODONE/Acetamin 5/325 MG* TAB PO ONE (20:12)
[2019-10-05] MEDS ORDERED: HYDROcodone/ACETAMIN 5-325 MG* 1 TAB PO ONE (20:28)
== END 2019-10-05 20:40 | disposition home or self-care (01) ==
LOC: UCCORT 19:56
DX: K08.89 Other specified disorders of teeth and supporting structures (principal); I10 Essential (primary) hypertension; F17.210 Nicotine dependence, cigarettes, uncomplicated; Z88.5 Allergy status to narcotic agent
CPT/HCPCS: 99212; A9270-GY; G0463

== ENCOUNTER 2019-10-18 20:42 | Emergency (ER) | payer MEDICAID ==
--- NOTE | 2019-10-18 20:45 | UC ---
Dental HPI - HPI Summary HPI Summary: 34 yo male presents with dental pain. He was seen in [facility] on 10/05 for same complaint and had a dental appointment for 10/12. He was on Pen VK for a dental infection at that time. Today he tells me that he missed his dental appointment on 10/12 because he car broke down. He rescheduled for this saturday 10/21. Tonight he was eating dinner and states he further broke a top left tooth around 1600 and has had pain since. Has taken 800mg ibuprofen, 1000mg tylenol, and used oragel with no relief. He has had many narcotics in the clinic and via prescriptions in the past for dental pain over the last 5 years. - History of Current Complaint Stated Complaint: DENTAL COMPLAINT Time Seen by Provider: 10/18/19 20:44 Hx Obtained From: Patient Onset/Duration: Sudden Onset Severity: Moderate Pain Intensity: 8 Pain Scale Used: 0-10 Numeric - Allergies/Home Medications Allergies/Adverse Reactions: Allergies Allergy/AdvReac Type Severity Reaction Status Date / Time tramadol Allergy GI Upset Verified 10/18/19 20:59 Home Medications: Home Medications Acetaminophen [Acetaminophen Extra Strength] 1,000 mg PO 10/18/19 [History] Ibuprofen 800 mg PO ONCE 10/18/19 [History Confirmed 10/18/19] PMH/Surg Hx/FS Hx/Imm Hx Cardiovascular History: Hypertension Other History Of: Negative For: HIV, Hepatitis B, Hepatitis C, Anticoagulant Therapy - Surgical History Surgical History: None Surgery Procedure, Year, and Place: no SX to rt upper extremity - Family History Known Family History: Positive: Hypertension, Diabetes Negative: Cardiac Disease, Renal Disease - Social History Lives: With Family Alcohol Use: None Substance Use Type: None Smoking Status (MU): Current Every Day Smoker Type: Smokeless Tobacco Amount Used/How Often: 3/4 can daily Length of Time of Smoking/Using Tobacco: 3-4 years Have You Smoked in the Last Year: No Household Exposure Type: Cigarettes - Immunization History Most Recent Influenza Vaccination: none Vaccination Up to Date: Yes Review of Systems All Other Systems Reviewed And Are Negative: No Constitutional: Positive: Negative Skin: Positive: Negative Eyes: Positive: Negative ENT: Positive: Dental Pain Respiratory: Positive: Negative Cardiovascular: Positive: Negative Gastrointestinal: Positive: Negative Neurological: Positive: Negative Psychological: Positive: Negative Physical Exam - Summary Physical Exam Summary: GENERAL: NAD. WDWN. No pain distress. SKIN: No rashes, sores, lesions, or open wounds. HEENT: Head: AT/NC Eyes: EOM intact. Conjunctiva clear without inflammation or discharge. Ears: Hearing grossly normal. TMs intact, no bulging, erythema, or edema. Nose: Nasal mucosa pink and moist. NTTP maxillary and frontal sinus. Throat: Posterior oropharynx without exudates, erythema, or tonsillar enlargement. Uvula midline. NECK: Supple. Nontender. No lymphadenopathy. CHEST: CTAB. No accessory muscle use. Breathing comfortably and in no distress. CV: RRR. Pulses intact. Cap refill <2seconds NEURO: Alert. PSYCH: Age appropriate behavior. Triage Information Reviewed: Yes Vital Signs: Vital Signs: Temp Pulse Resp BP Pulse Ox 98.6 F 99 18 127/86 99 10/18/19 20:53 10/18/19 20:53 10/18/19 20:53 10/18/19 20:53 10/18/19 20:53 Vital Signs Reviewed: Yes Dental: Positive: Percussion Tenderness @ - Tooth #15, Gross Decay/Caries @ - throughout, Dental Fracture @ - Tooth #15. Negative: Abscess @, Cellulitis @, Cervical Lymphadenopathy, Bleeding Dental Complaint Course/Dx - Course Course Of Treatment: Tooth #15 fracture. In his history he has been seen many times for dental pain in the last few years and has had narcotics prescribed and/or provided for him in the clinic. He missed his recent dental appointment and is again presenting with dental pain. He does not appear in any distress or pain in the clinic or during my exam. He has what appears to be an old fractured tooth at #15. In the clinic he was given #1 tab norco to take tonight at bedtime prn pain. Will rx for viscous lidocaine and have him keep his appt with [facility] on monday. - Differential Dx/Diagnosis Provider Diagnosis: Tooth fracture Discharge ED - Sign-Out/Discharge Documenting (check all that apply): Patient Departure All imaging exams completed and their final reports reviewed: No Studies - Discharge Plan Condition: Stable Disposition: HOME Prescriptions: Lidocaine 2% VISCOUS* [Xylocaine 2% Viscous*] 15 ml SWISH SPIT Q4H PRN #250 ml PRN Reason: Pain - Moderate Patient Education Materials: Toothache (ED) Referrals: Poli Schwab MD [Primary Care Provider] - Additional Instructions: It is very important that you keep your appointment with your dentist for this monday - Billing Disposition and Condition Condition: STABLE Disposition: Home
[2019-10-18 20:59] VITALS: BP 127/86
[2019-10-18] MEDS ORDERED: HYDROcodone/ACETAMIN 5-325 MG* 1 TAB PO ONE (21:04)
== END 2019-10-18 21:17 | disposition home or self-care (01) ==
LOC: UCEAST 20:42
DX: K03.81 Cracked tooth (principal); I10 Essential (primary) hypertension; F17.290 Nicotine dependence, other tobacco product, uncomplicated; Z88.5 Allergy status to narcotic agent
CPT/HCPCS: 99212; G0463